=== PATIENT | female | born 1960 | race Caucasian/White ===

== ENCOUNTER 2023-08-25 10:12 | Inpatient (IN) | payer OTHER, SELFPAY ==
[2023-08-25] VITALS (49 sets, daily range): BP systolic 127–160; BP diastolic 72–143; PULSE 97–174; RESP 18–28; TEMP 36.2–37; O2SAT 89–100; BMI 29.7
--- NOTE | 2023-08-25 10:35 | CRLHL7_ITS ---
For Patients: As a result of the Century Cures Act, medical imaging exams and procedure reports are released immediately into your electronic medical record. You may view this report before your referring provider. If you have questions, please contact your health care provider. Indication: Shortness of breath Technique: Chest 2 views Comparison: None Findings/Impression: Cardiovascular and mediastinum: Heart size and vasculature are normal in caliber and appearance. Mediastinum is within normal limits. Lungs and pleural spaces: Small left and trace right pleural effusions with bibasilar airspace disease consistent with atelectasis or pneumonia. Bones and soft tissues: No significant findings. Dictated by Christiano Hogue MD @ 08/25/2023 11:42:46 AM (Electronically Signed)
--- NOTE | 2023-08-25 10:36 | ED_ITS ---
HPI - General Adult General Chief complaint: Shortness of Breath/Dyspnea Stated complaint: can't catch breath Time Seen by Provider: 08/25/23 10:28 History of Present Illness HPI narrative: This 63-year-old female comes in reporting shortness of breath. She states that she has become more short of breath over the past week. She reports cough with diarrhea and fever initially about a month ago and states that she got better with all of those symptoms until about a week ago when she began to cough again and had more shortness of breath. She does not have any smoking history. She does not have a prior history of pulmonary disease or shortness of breath. She arrives here with tachycardia and tachypnea. Her temperature is normal and she has oximetry at 96-97% on room air. She does not report any chest pain. She does not have any unilateral leg pain or swelling. Related Data Home Medications ?Medication ?Instructions ?Recorded ?Confirmed escitalopram oxalate 10 mg tablet 10 mg PO DAILY 08/25/23 08/25/23 omeprazole 40 mg capsule,delayed 40 mg PO DAILY 08/25/23 08/25/23 release Allergies Allergy/AdvReac Type Severity Reaction Status Date / Time No Known Drug Allergies Allergy Verified 08/25/23 10:23 Review of Systems Status of ROS: Reports: 10 or more systems reviewed and unremarkable except as noted in History and below Narrative: Constitutional: No fevers, no weight gain or loss. Eyes: No discharge. No vision changes. HENT: No congestion, no sore throat, no ear pain. Cardiovascular: No chest pain, no palpitations. Respiratory: Shortness of breath. She reports a cough. Gastrointestinal: No abdominal pain, no vomiting, no diarrhea. Genitourinary: No dysuria, no hematuria. Musculoskeletal: Normal range of motion. Skin: No rashes, no pruritis. Neurological: No dizziness, weakness, sensory change, speech change. Endo/Heme/Allergies: No bruising or bleeding. No polydipsia. Pysch: no suicidality, no anxiety, no insomnia. All other systems reviewed and are negative. PFSH PFSH Social History Smoking Status: Never smoker How often do you have a drink containing alcohol: monthly or less AUDIT-C Alcohol total score: 1 Non-prescribed substance use: denies use Exam Narrative: Exam Narrative: Constitutional: Well-developed, well-nourished, no acute distress. HEENT: Normocephalic, atraumatic. Neck: Normal range of motion. Nontender. Supple. Heart: Regular. No murmurs. Tachycardia. Intact distal pulses. Lungs: Clear to auscultation, but decreased air movement and increased respiratory rate. Abdomen: Normal bowel sounds. Nontender. No rebound tenderness. Genitalia: Deferred. Back: No midline tenderness. Normal range of motion. Extremities: Normal range of motion. No injury. Skin: Intact. No rash. Warm. No erythema or pallor. Neurologic: No altered sensation. No weakness. Alert and oriented. Psychiatric: No suicidality. No anxiety or depression. No insomnia. Nursing notes and vitals signs are reviewed. Const: Vital Signs, click to edit/add: Vital Signs - 24 hr 08/25/23 10:21 08/25/23 10:22 08/25/23 10:37 Temperature 97.5 F L Pulse Rate Pulse Rate [Right Pulse Oximeter] 148 H Respiratory Rate 28 H Blood Pressure Blood Pressure [Ri ght Upper Arm] 150/108 H Pulse Oximetry 93 96 95 Oxygen Delivery Me thod Room Air 08/25/23 10:39 08/25/23 10:45 08/25/23 10:46 Temperature Pulse Rate 153 H 144 H 140 H Pulse Rate [Right Pulse Oximeter] Respiratory Rate Blood Pressure 149/117 H 148/124 H Blood Pressure [Ri ght Upper Arm] Pulse Oximetry 91 95 95 Oxygen Delivery Me thod 08/25/23 11:04 08/25/23 11:05 08/25/23 11:15 Temperature Pulse Rate 146 H 151 H 132 H Pulse Rate [Right Pulse Oximeter] Respiratory Rate 26 H Blood Pressure 151/122 H Blood Pressure [Ri ght Upper Arm] Pulse Oximetry 94 94 92 Oxygen Delivery Me thod 08/25/23 11:30 08/25/23 11:32 08/25/23 11:45 Temperature Pulse Rate 124 H 145 H 148 H Pulse Rate [Right Pulse Oximeter] Respiratory Rate Blood Pressure 148/127 H Blood Pressure [Ri ght Upper Arm] Pulse Oximetry 100 95 95 Oxygen Delivery Me thod 08/25/23 12:00 08/25/23 12:02 08/25/23 12:03 Temperature Pulse Rate 131 H 150 H 136 H Pulse Rate [Right Pulse Oximeter] Respiratory Rate 18 Blood Pressure 160/143 H Blood Pressure [Ri ght Upper Arm] Pulse Oximetry 91 94 94 Oxygen Delivery Me thod 08/25/23 12:15 08/25/23 12:30 08/25/23 12:31 Temperature Pulse Rate 144 H 158 H 141 H Pulse Rate [Right Pulse Oximeter] Respiratory Rate 24 Blood Pressure 127/98 H Blood Pressure [Ri ght Upper Arm] Pulse Oximetry 93 93 94 Oxygen Delivery Me thod 08/25/23 12:45 08/25/23 13:00 08/25/23 13:01 Temperature Pulse Rate 174 H 148 H 151 H Pulse Rate [Right Pulse Oximeter] Respiratory Rate Blood Pressure 143/108 H Blood Pressure [Ri ght Upper Arm] Pulse Oximetry 92 91 Oxygen Delivery Me thod 08/25/23 13:15 08/25/23 13:30 08/25/23 13:31 Temperature Pulse Rate 138 H 148 H 142 H Pulse Rate [Right Pulse Oximeter] Respiratory Rate Blood Pressure Blood Pressure [Ri ght Upper Arm] Pulse Oximetry 92 94 94 Oxygen Delivery Me thod 08/25/23 13:48 08/25/23 14:00 08/25/23 14:01 Temperature Pulse Rate 138 H 147 H 145 H Pulse Rate [Right Pulse Oximeter] Respiratory Rate Blood Pressure Blood Pressure [Ri ght Upper Arm] Pulse Oximetry 93 93 94 Oxygen Delivery Me thod 08/25/23 14:15 08/25/23 14:29 08/25/23 14:31 Temperature Pulse Rate 98 123 H 121 H Pulse Rate [Right Pulse Oximeter] Respiratory Rate Blood Pressure 130/91 H 127/98 H Blood Pressure [Ri ght Upper Arm] Pulse Oximetry 91 92 92 Oxygen Delivery Me thod 08/25/23 14:32 08/25/23 14:45 Temperature Pulse Rate 106 H 114 H Pulse Rate [Right Pulse Oximeter] Respiratory Rate Blood Pressure Blood Pressure [Ri ght Upper Arm] Pulse Oximetry 92 90 Oxygen Delivery Me thod Course Vital Signs Vital signs: Initial Vital Signs Respiratory Effort Short of Breath, Tachypnea 08/25/23 10:21 Respiratory Depth Shallow 08/25/23 10:21 Respiratory Pattern Normal 08/25/23 10:21 Pulse Oximetry 93 08/25/23 10:21 Vital Signs Pulse Oximetry 93 08/25/23 10:21 Temperature 97.5 F L 08/25/23 10:22 Pulse Rate 114 H 08/25/23 14:45 Respiratory Rate 24 08/25/23 12:31 Blood Pressure 127/98 H 08/25/23 14:31 Pulse Oximetry 90 08/25/23 14:45 Oxygen Delivery Method Room Air 08/25/23 10:22 Medications Administered Medications: Discontinued Medications Generic Name Dose Route Start Last Admin Trade Name Freq PRN Reason Stop Dose Admin Albuterol/Ipratropium 1 neb 08/25/23 10:34 08/25/23 11:20 Iprat-Albut 0.5-2.5 Mg/3 Ml Neb IH 08/25/23 10:35 1 neb ONCE ONE Administration Diltiazem HCl 20 mg 08/25/23 13:48 08/25/23 14:06 Diltiazem 5 Mg/Ml Inj IVP 08/25/23 13:49 20 mg ONCE ONE Administration Methylprednisolone Sodium Succinate 125 mg 08/25/23 10:34 08/25/23 11:20 Methylprednisolone Sod Succ 62.5 Mg/Ml (125) IVP 08/25/23 10:35 125 mg ONCE ONE Administration Perflutren Lipid Microsphere 2 ml 08/25/23 15:13 08/25/23 14:55 Perflutren Lipid Microspheres 2 Ml Vial IV 08/25/23 15:14 2 ml ONCE ONE Administration Medical Decision Making MDM Narrative Medical decision making narrative: This patient comes in with tachycardia and shortness of breath. Any EKG is obtained and shows heart rate around 160 beats per minute. It does appear to be atrial fibrillation however the rate is fast enough where it may be a compensatory mechanism for her shortness of breath. She does report a cough and states that she had a fever about almost a month ago. Chest x-ray shows bilateral lower lobe edema. Lab results show an elevated D-dimer at 1.[address] scan of the chest with IV contrast is obtained. There is no evidence of pulmonary embolism or pneumonia. The patient's white count is in normal range. She does have moderate size bilateral pleural effusions which accounts for her shortness of breath. Her B type nitrate peptide is elevated at around 2600. There is no comparison value available. This is a new onset atrial fibrillation for her and probably has been occurring over the past week or more so she is not a candidate for cardioversion. The patient did receive 20 mg of diltiazem intravenously which brought some rate control but not into normal range yet. She also received an oral dose of Eliquis and an IV dose of Lasix 40 mg. There was an opening at for the primary products inspectors to be able to do an echocardiogram today. This shows evidence of atrial fibrillation with an ejection fraction of 50-55% and mild TR and MR with pleural effusion. I spoke to the hospitalist on-call, Dr. Hanna, who agreed to her admission. Lab Data Labs: Lab Results 08/25/23 08/25/23 08/25/23 Range/Units 10:35 10:45 13:48 WBC 8.78 (4.50-11.00) K/uL RBC 5.50 H (4.00-5.20) m/uL Hgb 14.5 (12.0-16.0) gm/dL Hct 45.9 (33.0-51.0) % MCV 84 (80-100) fL MCH 26 (26-34) pg MCHC 32 (32-36) gm/dL RDW Coeff of Burke 13.6 (11.5-15.5) % Plt Count 310 (140-440) K/uL Neut % (Auto) 85.6 H (42.0-72.0) % Lymph % (Auto) 9.2 L (20-44) % [place] % (Auto) 4.3 (0.0-11.0) % Eos % (Auto) 0.6 (0.0-7.0) % Baso % (Auto) 0.2 (0.0-3.0) % Neut # (Auto) 7.50 H (1.7-7.0) K/uL Lymph # (Auto) 0.80 L (0.90-2.90) K/uL [place] # (Auto) 0.40 (0.00-0.90) K/UL Eos # (Auto) 0.05 (0.00-0.50) K/uL Baso # (Auto) 0.02 (0.00-0.30) K/uL Abs Immat Gran (auto) 0.01 (0.00-0.30) K/uL Imm/Tot Granulo (auto) 0.1 % D-Dimer Quant (PE/DVT) 1.93 H (0.00-0.50) ug/ml Sodium 138 (135-149) mmol/L Potassium 4.4 (3.6-5.1) mmol/L Chloride 101 (96-114) mmol/L Carbon Dioxide 29 (20-32) mmol/L Anion Gap 8 (7-15) mEq/L BUN 16 (7-30) mg/dL Creatinine 0.8 (0.5-1.5) mg/dL Estimated Creat Clear 48.43 Estimated GFR 82 ml/min Glucose 144 H (60-115) mg/dL Calcium 9.4 (8.4-10.6) mg/dL Magnesium (1.5-2.6) mg/dL C-Reactive Protein 1.6 H (0.5-1.0) mg/dL NT-Pro-B Natriuret Pep 2640 pg/mL POC Troponin I 0.01 (0.01-0.04) ng/ml 08/25/23 Range/Units 15:23 WBC (4.50-11.00) K/uL RBC (4.00-5.20) m/uL Hgb (12.0-16.0) gm/dL Hct (33.0-51.0) % MCV (80-100) fL MCH (26-34) pg MCHC (32-36) gm/dL RDW Coeff of [place] (11.5-15.5) % Plt Count (140-440) K/uL Neut % (Auto) (42.0-72.0) % Lymph % (Auto) (20-44) % [place] % (Auto) (0.0-11.0) % Eos % (Auto) (0.0-7.0) % Baso % (Auto) (0.0-3.0) % Neut # (Auto) (1.7-7.0) K/uL Lymph # (Auto) (0.90-2.90) K/uL [place] # (Auto) (0.00-0.90) K/UL Eos # (Auto) (0.00-0.50) K/uL Baso # (Auto) (0.00-0.30) K/uL Abs Immat Gran (auto) (0.00-0.30) K/uL Imm/Tot Granulo (auto) % D-Dimer Quant (PE/DVT) (0.00-0.50) ug/ml Sodium (135-149) mmol/L Potassium (3.6-5.1) mmol/L Chloride (96-114) mmol/L Carbon Dioxide (20-32) mmol/L Anion Gap (7-15) mEq/L BUN (7-30) mg/dL Creatinine (0.5-1.5) mg/dL Estimated Creat Clear Estimated GFR ml/min Glucose (60-115) mg/dL Calcium (8.4-10.6) mg/dL Magnesium 2.3 (1.5-2.6) mg/dL C-Reactive Protein (0.5-1.0) mg/dL NT-Pro-B Natriuret Pep pg/mL POC Troponin I (0.01-0.04) ng/ml Imaging Data CT scan - chest: Radiologist's impression: 1. No evidence of pulmonary embolism. 2. Pulmonary edema and moderate bilateral pleural effusions. ECG Data Attestation: I personally reviewed and interpreted this ECG as follows: Interpretation: Tachycardia, rate 165 beats per minute. The computer report shows atrial fibrillation with rapid ventricular response. By my assessment this is less clear as she is short of breath and the heart rate is fast enough where it is difficult to distinguish evidence of P waves. There are no ST or T-wave abnormalities. Repeat EKG after diltiazem shows atrial fibrillation with a heart rate of 132 beats per minute. There are no specific ST or T-wave abnormalities. Discharge Plan Discharge Clinical Impression: Congestive heart failure, Atrial fibrillation with rapid ventricular response Patient Disposition: Admitted As Inpatient Condition: Unchanged Prescriptions: No Action omeprazole 40 mg capsule,delayed release(DR/EC) 40 mg PO DAILY escitalopram oxalate 10 mg tablet 10 mg PO DAILY Follow Up/Referrals: Kishore Barreto MD [Staff Physician] -
[2023-08-25 10:53] LABS: Basophils Absolute Auto 0.02 K/uL (0.00-0.30); Basophils Percent Auto 0.2 % (0.0-3.0); Eosinophils Absolute Auto 0.05 K/uL (0.00-0.50); Eosinophils Percent Auto 0.6 % (0.0-7.0); Hematocrit 45.9 % (33.0-51.0); Hemoglobin* 14.5 gm/dL (12.0-16.0); Immature Granulocytes Abs Auto 0.01 K/uL (0.00-0.30); Immature Granulocytes Pct Auto 0.1 %; Lymphocytes Percent Auto 9.2 % (20-44); Mean Corpuscular HGB Conc 32 gm/dL (32-36); Mean Corpuscular Hemoglobin 26 pg (26-34); Mean Corpuscular Volume 84 fL (80-100); Monocytes Percent Auto 4.3 % (0.0-11.0); Neutrophils Percent Auto 85.6 % (42.0-72.0); Platelet Count* 310 K/uL (140-440); RDW Coefficient of Variation % 13.6 % (11.5-15.5); White Blood Count* 8.78 K/uL (4.50-11.00)
[2023-08-25 10:57] LABS: Slide Review Reflex No
[2023-08-25 10:58] LABS: Troponin, Point-of-Care* 0.01 ng/ml (0.01-0.04)
[2023-08-25 11:08] LABS: Chloride* 101 mmol/L (96-114); Potassium* 4.4 mmol/L (3.6-5.1); Sodium* 138 mmol/L (135-149)
[2023-08-25 11:11] LABS: Anion Gap 8 mEq/L (7-15); Blood Urea Nitrogen* 16 mg/dL (7-30); Carbon Dioxide* 29 mmol/L (20-32); Creatinine* 0.8 mg/dL (0.5-1.5); Est. Creatinine Clearance* 48.43; Estimated Glomerular Filt Rate 82 ml/min
[2023-08-25 11:12] LABS: Calcium* 9.4 mg/dL (8.4-10.6); D Dimer Quantitative* 1.93 ug/ml (0.00-0.50); Glucose* 144 mg/dL (60-115)
[2023-08-25 11:14] LABS: C Reactive Protein* 1.6 mg/dL (0.5-1.0)
[2023-08-25] MEDS: METHYLPREDNISOLONE SOD SUCC 62.5 MG/ML (125) 125 MG IVP (11:20)
[2023-08-25] MEDS: IPRAT-ALBUT 0.5-2.5 MG/3 ML NEB 1 NEB IH (11:20)
--- NOTE | 2023-08-25 11:28 | CRLHL7_ITS ---
For Patients: As a result of the Century Cures Act, medical imaging exams and procedure reports are released immediately into your electronic medical record. You may view this report before your referring provider. If you have questions, please contact your health care provider. INDICATION: Shortness of breath, tachycardia. TECHNIQUE: CT chest PE was acquired with 95 cc Isovue 370 IV contrast. COMPARISON: Same day chest radiographs. FINDINGS: Heart and vasculature: Contrast opacification of the pulmonary arterial tree is adequate. No sign of pulmonary embolism. Mild left atrial enlargement. Thoracic aorta and pulmonary artery are normal in caliber. Lungs and pleura: Moderate bilateral pleural effusions. Bilateral lower lobe and bibasilar atelectasis. Mosaic attenuation, likely reflecting pulmonary edema. No pneumothorax. Lymph nodes/mediastinum: No mediastinal, hilar, or axillary adenopathy. Chest wall: No masses. Upper abdomen: No acute findings. Bones: Unremarkable for age. IMPRESSION: 1. No evidence of pulmonary embolism. 2. Pulmonary edema and moderate bilateral pleural effusions. Please note that all CT scans at this facility use dose modulation, iterative reconstruction, and/or weight-based dosing when appropriate to reduce radiation dose to as low as reasonably achievable. Dictated by Casper More MD @ 08/25/2023 1:26:58 PM (Electronically Signed)
[2023-08-25] MEDS: dilTIAZem 5 MG/ML inj 20 MG IVP (14:06)
[2023-08-25 14:19] LABS: NT Pro B Type NatriureticPept* 2640 pg/mL
[2023-08-25] MEDS: PERFLUTREN LIPID MICROSPHERES 2 ML VIAL IV (14:55)
[2023-08-25 15:40] LABS: Magnesium* 2.3 mg/dL (1.5-2.6)
[2023-08-25] MEDS: APIXABAN 5 MG TABLET 10 MG PO (16:47)
[2023-08-25] MEDS: FUROSEMIDE 10 MG/ML inj 40 MG IVP (16:47)
--- NOTE | 2023-08-25 18:05 | P.IMHP_ITS ---
Hospitalist- H&P: HPI History of Present Illness Date Seen: 08/25/23 Chief complaint: can't catch breath Narrative: Tia Portillo is a 63 year old woman presents with increasing dyspnea with exertion for the past week. About a month ago she had a cough, diarrhea, low-grade fever with a temperature of a 100? F. this seemingly improved after a few days but ever since then she has noticed a gradual increasing dyspnea with exertion. Denies paroxysmal nocturnal dyspnea or orthopnea. Denies dyspnea at rest. Over the course of the past week she has had progressive dyspnea with exertion. She can hardly walk 30 ft now without being dyspneic and is taking longer for her to recover as well. Typically sleeps on her side with 1 or 2 pillows and this is not any different. Has not had any lower extremity edema. Denies chest heaviness, pressure, tightness, or pain. Denies syncope or near-syncope. Has had intermittent nausea. Had an episode of vomiting in the emergency department today. Denies paroxysmal nocturnal dyspnea orthopnea. Denies palpitations. Has never had any symptoms like this in the past. Denies blood loss of any sort. No recent trauma or injury. Recently traveled to [place], [place], by car. No other travel. Indicates she takes her medications as prescribed. Review of Systems Status of ROS: Reports: 10 or more systems reviewed and unremarkable except as noted in History and below Narrative: Aside from what is specified above is negative. Tells me she was assessed by her primary care physician for annual physical exam about 5 weeks ago and had an excellent checkup. Primary care physician is Dr. Goncalves., [facility]. Has never used tobacco in the past. Really drinks alcohol on social basis only, possibly 1 or 2 glasses of wine at [employer] in 1-2 beers a month at the most. Denies use of street or recreational drugs. Does not watch her sodium intake. Designates her father, Johnathan Diaz, as her power of associate attorney for health should that be required, phone [phone]. Requests full cardiopulmonary resuscitation in the event of cardiopulmonary demise. States unequivocally that she does not want to be kept alive in a persistent vegetative state. [facility] Medical History (Updated 08/25/23 @ 18:23 by Alfred Hanna MD) Dyspepsia ?R10.13 - Epigastric pain (ICD-10) Hyperlipidemia ?E78.5 - Hyperlipidemia, unspecified (ICD-10) Vitamin D deficiency ?E55.9 - Vitamin D deficiency, unspecified (ICD-10) Primary hypothyroidism ?E03.9 - Hypothyroidism, unspecified (ICD-10) Sensorineural hearing loss (SNHL) of both ears ?H90.3 - Sensorineural hearing loss, bilateral (ICD-10) History of ileus ?Z87.19 - Personal history of other diseases of the digestive system (ICD-10) Depression with anxiety ?F41.8 - Other specified anxiety disorders (ICD-10) Tinnitus of both ears ?H93.13 - Tinnitus, bilateral (ICD-10) Chronic back pain ?M54.9 - Dorsalgia, unspecified (ICD-10) ?G89.29 - Other chronic pain (ICD-10) Degenerative disc disease Surgical History (Updated 08/25/23 @ 17:59 by Alfred Hanna MD) Status post lumbar spinal fusion ?Z98.1 - Arthrodesis status (ICD-10) Family History (Updated 08/25/23 @ 18:04 by Alfred Hanna MD) Mother Cancer Diabetes Heart disease Aunt Breast cancer Crohn's disease Uncle Colon cancer Maternal Grandmother Diabetes Paternal Grandmother Diabetes Father Heart disease High blood pressure Son Crohn's disease Social History (Updated 08/25/23 @ 18:01 by Alfred Hanna MD) Narrative: 08/25/2023: Lives in [facility] with her pet dog. 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 living situation?: I presently do not have a place to live Problems where you live: no known problems Problems where you live details: Currently homeless. Lives in brother's camper. Looking for an apartment. In the past 12 months, utilities in danger of being shut off: unable to answer In past 12 months, lack of transportation kept you from medical appts, meetings, work, or getting things needed for daily living: no In the past 12 mos, have been you worried that your food would run out before you had money to buy more?: never true In the past 12 mos, the food you bought just didn't last and you didn't have money to buy more?: never true Highest level of school completed/degree received: some college, no degree Smoking Status: Never smoker Do you use any of these nicotine containing products: None Second hand tobacco smoke exposure: No How often do you have a drink containing alcohol: monthly or less Alcohol type: beer How many standard drinks containing alcohol do you have on a typical day: 3 or 4 How often do you have six or more drinks on one occasion: Less than monthly AUDIT-C Alcohol total score: 3 Non-prescribed substance use: denies use Caffeine: Yes (daily tea drinker) How often does anyone, including family, friends and others, physically hurt you : never How often does anyone, including family, friends and others, insult or talk down to you: never How often does anyone, including family, friends and others, threaten you with harm: never How often does anyone, including family, friends and others, scream or curse at you: never service: No Meds Home Medications and Allergies Home Medications ?Medication ?Instructions ?Recorded ?Confirmed ?Type escitalopram oxalate 10 mg tablet 10 mg PO DAILY 08/25/23 08/25/23 History levothyroxine 88 mcg tablet 88 mcg PO DAILY 08/25/23 08/25/23 History omeprazole 40 mg capsule,delayed 40 mg PO DAILY 08/25/23 08/25/23 History release tinnitus supplement 08/25/23 History Allergies Allergy/AdvReac Type Severity Reaction Status Date / Time cucumber Allergy Mild Verified 08/25/23 17:49 latex Allergy Mild Verified 08/25/23 17:49 Lettuce Allergy Mild Uncoded 08/25/23 17:49 Peppers Allergy Mild Uncoded 08/25/23 17:49 Exam Narrative: Exam Narrative: Examined patient emergency department. She is sitting with head of bed elevated 45?. Appears comfortable. Vision and hearing are adequate. Alert and oriented to self, place, time, situation. Friendly, articulate, cooperative. Tympanic membranes and external auditory canals are clear bilaterally. Midline nasal septum. Dry nasal mucosa. No conjunctival injection or icterus. Pupils equally round and reactive to light and accommodation. Conjugate gaze. M ultiple missing teeth. Needs some dental work done. Other teeth in fair repair. Midline trachea. Supple neck. With patient in sitting upright position she has jugular venous distention long term up her neck and hepatojugular reflux up to the angle of the jaw. No carotid bruits. No head and neck lymphadenopathy. Lungs with decreased breath sounds in the bases otherwise clear to auscultation without wheezing, rhonchi, or rales. Chest wall excursions are full with respiratory efforts. No CVA tenderness to thumping. Heart tones are chaotic and tachycardic. Difficult to discern murmurs, gallops, or rubs. PMI not laterally displaced. Abdomen with active bowel sounds, soft, nontender. No organomegaly or masses. No rebound or guarding. Extremities without edema. Palpable pulses upper and lower extremities. Independent in transfer, station, and gait. No focal motor neurologic deficits. Cranial nerves 3-12 grossly intact. No tremor, asterixis, or ataxia. Skin is warm, dry, intact. Const: Vital Signs, click to edit/add: Vital Signs - 24 hr 08/25/23 10:21 08/25/23 10:22 08/25/23 10:37 Temperature 97.5 F L Pulse Rate Pulse Rate [Pulse Oximeter] Pulse Rate [Right Pulse Oximeter] 148 H Respiratory Rate 28 H Blood Pressure Blood Pressure [Le ft Arm] Blood Pressure [Ri ght Upper Arm] 150/108 H Pulse Oximetry 93 96 95 Oxygen Delivery Me thod Room Air 08/25/23 10:39 08/25/23 10:45 08/25/23 10:46 Temperature Pulse Rate 153 H 144 H 140 H Pulse Rate [Pulse Oximeter] Pulse Rate [Right Pulse Oximeter] Respiratory Rate Blood Pressure 149/117 H 148/124 H Blood Pressure [Le ft Arm] Blood Pressure [Ri ght Upper Arm] Pulse Oximetry 91 95 95 Oxygen Delivery Me thod 08/25/23 11:04 08/25/23 11:05 08/25/23 11:15 Temperature Pulse Rate 146 H 151 H 132 H Pulse Rate [Pulse Oximeter] Pulse Rate [Right Pulse Oximeter] Respiratory Rate 26 H Blood Pressure 151/122 H Blood Pressure [Le ft Arm] Blood Pressure [Ri ght Upper Arm] Pulse Oximetry 94 94 92 Oxygen Delivery Me thod 08/25/23 11:30 08/25/23 11:32 08/25/23 11:45 Temperature Pulse Rate 124 H 145 H 148 H Pulse Rate [Pulse Oximeter] Pulse Rate [Right Pulse Oximeter] Respiratory Rate Blood Pressure 148/127 H Blood Pressure [Le ft Arm] Blood Pressure [Ri ght Upper Arm] Pulse Oximetry 100 95 95 Oxygen Delivery Me thod 08/25/23 12:00 08/25/23 12:02 08/25/23 12:03 Temperature Pulse Rate 131 H 150 H 136 H Pulse Rate [Pulse Oximeter] Pulse Rate [Right Pulse Oximeter] Respiratory Rate 18 Blood Pressure 160/143 H Blood Pressure [Le ft Arm] Blood Pressure [Ri ght Upper Arm] Pulse Oximetry 91 94 94 Oxygen Delivery Me thod 08/25/23 12:15 08/25/23 12:30 08/25/23 12:31 Temperature Pulse Rate 144 H 158 H 141 H Pulse Rate [Pulse Oximeter] Pulse Rate [Right Pulse Oximeter] Respiratory Rate 24 Blood Pressure 127/98 H Blood Pressure [Le ft Arm] Blood Pressure [Ri ght Upper Arm] Pulse Oximetry 93 93 94 Oxygen Delivery Me thod 08/25/23 12:45 08/25/23 13:00 08/25/23 13:01 Temperature Pulse Rate 174 H 148 H 151 H Pulse Rate [Pulse Oximeter] Pulse Rate [Right Pulse Oximeter] Respiratory Rate Blood Pressure 143/108 H Blood Pressure [Le ft Arm] Blood Pressure [Ri ght Upper Arm] Pulse Oximetry 92 91 Oxygen Delivery Me thod 08/25/23 13:15 08/25/23 13:30 08/25/23 13:31 Temperature Pulse Rate 138 H 148 H 142 H Pulse Rate [Pulse Oximeter] Pulse Rate [Right Pulse Oximeter] Respiratory Rate Blood Pressure Blood Pressure [Le ft Arm] Blood Pressure [Ri ght Upper Arm] Pulse Oximetry 92 94 94 Oxygen Delivery Nv thod 08/25/23 13:48 08/25/23 14:00 08/25/23 14:01 Temperature Pulse Rate 138 H 147 H 145 H Pulse Rate [Pulse Oximeter] Pulse Rate [Right Pulse Oximeter] Respiratory Rate Blood Pressure Blood Pressure [Le ft Arm] Blood Pressure [Ri ght Upper Arm] Pulse Oximetry 93 93 94 Oxygen Delivery Me thod 08/25/23 14:15 08/25/23 14:29 08/25/23 14:31 Temperature Pulse Rate 98 123 H 121 H Pulse Rate [Pulse Oximeter] Pulse Rate [Right Pulse Oximeter] Respiratory Rate Blood Pressure 130/91 H 127/98 H Blood Pressure [Le ft Arm] Blood Pressure [Ri ght Upper Arm] Pulse Oximetry 91 92 92 Oxygen Delivery Me thod 08/25/23 14:32 08/25/23 14:45 08/25/23 15:00 Temperature Pulse Rate 106 H 114 H 113 H Pulse Rate [Pulse Oximeter] Pulse Rate [Right Pulse Oximeter] Respiratory Rate Blood Pressure Blood Pressure [Le ft Arm] Blood Pressure [Ri ght Upper Arm] Pulse Oximetry 92 90 91 Oxygen Delivery Me thod 08/25/23 15:16 08/25/23 15:18 08/25/23 15:30 Temperature Pulse Rate 135 H 133 H 119 H Pulse Rate [Pulse Oximeter] Pulse Rate [Right Pulse Oximeter] Respiratory Rate Blood Pressure Blood Pressure [Le ft Arm] Blood Pressure [Ri ght Upper Arm] Pulse Oximetry 89 93 93 Oxygen Delivery Me thod 08/25/23 15:33 08/25/23 15:45 08/25/23 16:00 Temperature Pulse Rate 134 H 125 H 131 H Pulse Rate [Pulse Oximeter] Pulse Rate [Right Pulse Oximeter] Respiratory Rate 26 H Blood Pressure 129/106 H Blood Pressure [Le ft Arm] Blood Pressure [Ri ght Upper Arm] Pulse Oximetry 93 91 92 Oxygen Delivery Me thod 08/25/23 16:02 08/25/23 16:15 08/25/23 16:30 Temperature Pulse Rate 131 H 143 H 145 H Pulse Rate [Pulse Oximeter] Pulse Rate [Right Pulse Oximeter] Respiratory Rate Blood Pressure 151/117 H Blood Pressure [Le ft Arm] Blood Pressure [Ri ght Upper Arm] Pulse Oximetry 91 92 91 Oxygen Delivery Me thod 08/25/23 16:31 08/25/23 16:45 08/25/23 17:35 Temperature 97.6 F Pulse Rate 138 H 135 H Pulse Rate [Pulse Oximeter] 146 H Pulse Rate [Right Pulse Oximeter] Respiratory Rate 26 H Blood Pressure 137/120 H Blood Pressure [Le ft Arm] 127/105 H Blood Pressure [Ri ght Upper Arm] Pulse Oximetry 91 91 90 Oxygen Delivery Me od Room Air Hospitalist - H&P: Result Labs Labs: Short CBC 08/25/23 Range/Units 10:45 WBC 8.78 (4.50-11.00) K/uL Hgb 14.5 (12.0-16.0) gm/dL Hct 45.9 (33.0-51.0) % Plt Count 310 (140-440) K/uL [facility] 08/25/23 10:45 Sodium 138 Potassium 4.4 Chloride 101 Carbon Dioxide 29 BUN 16 Creatinine 0.8 Glucose 144 H Calcium 9.4 ECG Attestation: I personally reviewed and interpreted this ECG as follows: ECG interpretation date: 08/25/23 Interpretation: Atrial fibrillation with rapid ventricular response. No obvious infarct or ischemic pattern. Imaging Chest x-ray: Attestation: I have reviewed the pertinent imaging results. Radiologist's impression: Mild to moderate left pleural effusion. Chest x-ray otherwise unremarkable. CT scan - chest: Attestation: I have reviewed the pertinent imaging results. Radiologist's impression: IMPRESSION: 1. No evidence of pulmonary embolism. 2. Pulmonary edema and moderate bilateral pleural effusions. Assessment and Plan Assessment and plan (1) Acute diastolic heart failure with preserved ejection fraction: Problem comment: -furosemide 40 mg IV in the emergency department on 08/25/2023 and then 40 mg IV tomorrow morning -rate control of AFib RVR -echocardiogram obtained while patient was in the emergency department on 08/25/23 demonstrated the followin. Normal LV chamber size and wall thickness with normal global systolic function and estimated EF of 55-60%. 2. Mildly enlarged left atrium. 3. Right ventricular cavity size is normal with normal systolic RV function. 4. Mitral valve sclerosis with mild to moderate mitral regurgitation. 5. No pericardial effusion. Status: Acute (2) Atrial fibrillation with rapid ventricular response: Problem comment: -echo obtained in the emergency department on 08/25/2023 demonstrated EF of 55- 60%. -diltiazem 20 mg IV in the emergency department slowed heart rate from 160 beats per minute down to 120 beats per minute. -on arrival to floor we will give patient diltiazem 10 mg IV, started metoprolol 2.5 mg IV q.6, and make available diltiazem 30 mg immediate release q.6 hours p.r.n. for heart rate greater than 100 beats per minute for more than 10 minutes appear -initiate anticoagulation with apixaban. In ED she was administered 10 mg orally. Starting tomorrow morning we will start her on apixaban 5 mg twice daily. -patient will need to be anticoagulated for at least a month before consideration of possible intentional cardioversion Status: Acute (3) Diastolic heart failure, NYHA class 3: Problem comment: -control AFib RVR rate and initiate diuresis with furosemide 40 mg IV Status: Acute (4) Pleural effusion due to congestive heart failure: Problem comment: -for now will treat with diuresis. -consider needle thoracentesis if warranted hereafter. Status: Acute Plan 1. Reviewed impression with patient. 2. Answered her questions to her satisfaction. 3. Discussed recommended treatment plan. 4. Patient agreeable to above stated plans and recommendations. 5. Continue with other supportive efforts. Total Time Spent Total Time Spent: 65 minute
[2023-08-25] MEDS: METOPROLOL TARTRATE 1 MG/ML inj 2.5 MG IVP ×2 (18:10→23:43)
[2023-08-25] MEDS: dilTIAZem 30 MG TABLET PO ×2 (18:10→23:14)
[2023-08-25] MEDS: dilTIAZem 5 MG/ML inj 10 MG IVP (18:27)
--- NOTE | 2023-08-25 18:56 | PC.NURSE ---
Admission: Patient arrived to unit at 1715 via wheelchair. Patient alert and oriented. Increased blood pressure and respirations noted. Patient is SOB and tachypneic with exertion. Afebrile. Able to ambulate independently. Tolerated a regular diet well.
[2023-08-25] MEDS: ACETAMINOPHEN 325 MG TABLET 650 MG PO (19:50)
[2023-08-25] MEDS: SODIUM CHLORIDE 0.9 % (FLUSH) 10 ML SYRINGE 5 ML IVF (21:02)
[2023-08-25] MEDS: ESCITALOPRAM 10 MG TABLET PO (22:40)
[2023-08-25] MEDS: METOPROLOL TARTRATE 25 MG TABLET PO (23:12)
[2023-08-26] VITALS (10 sets, daily range): BP systolic 102–129; BP diastolic 62–85; PULSE 69–99; RESP 18–20; TEMP 36.4–36.8; O2SAT 88–95
[2023-08-26] MEDS: MELATONIN 3 MG TABLET PO ×2 (00:17→21:25)
[2023-08-26] MEDS: LEVOTHYROXINE 88 MCG TABLET PO (06:05)
[2023-08-26] MEDS: dilTIAZem 30 MG TABLET PO ×3 (06:05→16:17)
[2023-08-26] MEDS: OMEPRAZOLE 20 MG CAPSULE DR 40 MG PO (06:06)
[2023-08-26 06:39] LABS: Hemoglobin* 12.7 gm/dL (12.0-16.0); Mean Corpuscular HGB Conc 32 gm/dL (32-36); Mean Corpuscular Hemoglobin 26 pg (26-34); Mean Corpuscular Volume 83 fL (80-100); Platelet Count* 226 K/uL (140-440); Red Blood Count 4.81 m/uL (4.00-5.20)
[2023-08-26 06:44] LABS: Slide Review Reflex No
--- NOTE | 2023-08-26 06:53 | PC.NURSE ---
End of shift note [id number]: Pt alert & oriented x 4 and able to make needs known. IV to R AC patent and SL. Pt has been afebrile throughout the shift. She continues on telemetry with A fib with RVR noted last evening. PRN Metoprolol IVP given per order for HR of 116. Pt has since been in A fib with normal ventricular rate. EKG completed this morning per order. PRN Melatonin last evening administered per pt request. She transfers/ambulates independently in room and has been agreeable to wearing bilateral K[place]TH[place]KEY[place] stockings per order though did refuse SCDs. Pt continent of bladder. PRN Tylenol given for report of 4/10 lower back pain last evening along with ice, rest and repositioning.
[2023-08-26 06:57] LABS: Magnesium* 2.2 mg/dL (1.5-2.6)
[2023-08-26 07:17] LABS: Troponin I* < 0.01 ng/mL (0.01-0.04)
[2023-08-26] MEDS: FUROSEMIDE 10 MG/ML inj 40 MG IVP (09:09)
[2023-08-26] MEDS: APIXABAN 5 MG TABLET PO ×2 (09:10→20:38)
[2023-08-26] MEDS: METOPROLOL TARTRATE 25 MG TABLET PO ×2 (09:10→20:38)
[2023-08-26] MEDS: SODIUM CHLORIDE 0.9 % (FLUSH) 10 ML SYRINGE 5 ML IVF ×2 (09:12→20:39)
--- NOTE | 2023-08-26 10:02 | PM.IMPN1 ---
Progress Note: A&P Assessment and plan (1) Acute diastolic heart failure with preserved ejection fraction: Problem details: - furosemide 40 mg IV in the emergency department on 08/25/2023 and then 40 mg IV 08/25 morning - rate control of AFib RVR - TTE obtained while patient was in the emergency department on 08/25/23 demonstrated the followin. Normal LV chamber size and wall thickness with normal global systolic function and estimated EF of 55-60%. 2. Mildly enlarged left atrium. 3. Right ventricular cavity size is normal with normal systolic RV function. 4. Mitral valve sclerosis with mild to moderate mitral regurgitation. 5. No pericardial effusion. Status: Acute (2) Atrial fibrillation with rapid ventricular response: Problem details: - Diltiazem 20 mg IV in the emergency department slowed HR from 160s-120s - upon admission, initiated oral Metoprolol BID, prn IV Metoprolol, scheduled IR Diltiazem Q6H - Will transition from IR to ER Diltiazem 08/25 pm, continue to follow on telemetry - if stable tomorrow, likely d/c home - on Apixaban for anticoagulation - close outpatient f/u Status: Acute (3) Diastolic heart failure, NYHA class 3: Problem details: -control AFib RVR rate and initiate diuresis with furosemide 40 mg IV Status: Acute (4) Pleural effusion due to congestive heart failure: Problem details: - improving with diuresis - received IV Lasix in the ER and upon admission to the hospital - anticipate this will improve with heart rate control, will hold further diuretics and monitor clinically Status: Acute (5) Hypothyroidism: Problem details: - on 88mcg of Levothyroxine - TSH 1 on 08/25/23; patient considering lowering dose to 88mcg 5 days/week to increase TSH given new onset a fib Status: Acute Plan - per above - apixaban for anticoagulation - likely home tomorrow with close PCP follow-up Subjective Date Seen: 08/26/23 Interval history: Tia was admitted (with new onset AFib with RVR, also noted to have bilateral pleural effusions. She still has atrial fibrillation, currently rate controlled on current regimen. She received IV Lasix in the emergency room last night and another dose this morning. She is currently stable on room air, feels significantly better with rate control. She remains in atrial fibrillation, on metoprolol BID and q.6 hours diltiazem. No other concerns for hospitalist team this morning. Exam Narrative: Exam Narrative: GEN: Alert and answering questions appropriately, sitting comfortably in bed and nontender toxic. Speaking in full sentences without tachypnea HEENT: EOMIs bilaterally, no scleral icterus CV: Irregularly irregular rhythm with rate in the 80s, no concerning murmurs R: Decreased breath some bilateral bases, no concerning wheezing Ext: wwp, no concerning edema Skin: No concerning skin lesions or rashes on exposed skin Neuro: Nonfocal Psych: Appropriate Const: Vital Signs, click to edit/add: Vital Signs - 24 hr 08/25/23 10:21 08/25/23 10:22 08/25/23 10:37 Temperature 97.5 F L Pulse Rate Pulse Rate [Pulse Oximeter] Pulse Rate [Right Pulse Oximeter] 148 H Respiratory Rate 28 H Blood Pressure Blood Pressure [Le ft Arm] Blood Pressure [Ri ght Upper Arm] 150/108 H Pulse Oximetry 93 96 [facility] 08/25/23 10:39 08/25/23 10:45 08/25/23 10:46 Temperature Pulse Rate 153 H 144 H 140 H Pulse Rate [Pulse Oximeter] Pulse Rate [Right Pulse Oximeter] Respiratory Rate Blood Pressure 149/117 H 148/124 H Blood Pressure [Le ft Arm] Blood Pressure [Ri ght Upper Arm] Pulse Oximetry 91 95 95 [facility] 08/25/23 11:04 08/25/23 11:05 08/25/23 11:15 Temperature Pulse Rate 146 H 151 H 132 H Pulse Rate [Pulse Oximeter] Pulse Rate [Right Pulse Oximeter] Respiratory Rate 26 H Blood Pressure 151/122 H Blood Pressure [Le ft Arm] Blood Pressure [Ri ght Upper Arm] Pulse Oximetry 94 94 92 [facility] 08/25/23 11:30 08/25/23 11:32 08/25/23 11:45 Temperature Pulse Rate 124 H 145 H 148 H Pulse Rate [Pulse Oximeter] Pulse Rate [Right Pulse Oximeter] Respiratory Rate Blood Pressure 148/127 H Blood Pressure [Le ft Arm] Blood Pressure [Ri ght Upper Arm] Pulse Oximetry 100 95 95 [facility] 08/25/23 12:00 08/25/23 12:02 08/25/23 12:03 Temperature Pulse Rate 131 H 150 H 136 H Pulse Rate [Pulse Oximeter] Pulse Rate [Right Pulse Oximeter] Respiratory Rate 18 Blood Pressure 160/143 H Blood Pressure [Le ft Arm] Blood Pressure [Ri ght Upper Arm] Pulse Oximetry 91 94 94 Oxygen Delivery Me thod 08/25/23 12:15 08/25/23 12:30 08/25/23 12:31 Temperature Pulse Rate 144 H 158 H 141 H Pulse Rate [Pulse Oximeter] Pulse Rate [Right Pulse Oximeter] Respiratory Rate 24 Blood Pressure 127/98 H Blood Pressure [Le ft Arm] Blood Pressure [Ri ght Upper Arm] Pulse Oximetry 93 93 94 Oxygen Delivery Me thod 08/25/23 12:45 08/25/23 13:00 08/25/23 13:01 Temperature Pulse Rate 174 H 148 H 151 H Pulse Rate [Pulse Oximeter] Pulse Rate [Right Pulse Oximeter] Respiratory Rate Blood Pressure 143/108 H Blood Pressure [Le ft Arm] Blood Pressure [Ri ght Upper Arm] Pulse Oximetry 92 91 Oxygen Delivery Me thod 08/25/23 13:15 08/25/23 13:30 08/25/23 13:31 Temperature Pulse Rate 138 H 148 H 142 H Pulse Rate [Pulse Oximeter] Pulse Rate [Right Pulse Oximeter] Respiratory Rate Blood Pressure Blood Pressure [Le ft Arm] Blood Pressure [Ri ght Upper Arm] Pulse Oximetry 92 94 94 Oxygen Delivery Or thod 08/25/23 13:48 08/25/23 14:00 08/25/23 14:01 Temperature Pulse Rate 138 H 147 H 145 H Pulse Rate [Pulse Oximeter] Pulse Rate [Right Pulse Oximeter] Respiratory Rate Blood Pressure Blood Pressure [Le ft Arm] Blood Pressure [Ri ght Upper Arm] Pulse Oximetry 93 93 94 Oxygen Delivery Me thod 08/25/23 14:15 08/25/23 14:29 08/25/23 14:31 Temperature Pulse Rate 98 123 H 121 H Pulse Rate [Pulse Oximeter] Pulse Rate [Right Pulse Oximeter] Respiratory Rate Blood Pressure 130/91 H 127/98 H Blood Pressure [Le ft Arm] Blood Pressure [Ri ght Upper Arm] Pulse Oximetry 91 92 92 Oxygen Delivery Me thod 08/25/23 14:32 08/25/23 14:45 08/25/23 15:00 Temperature Pulse Rate 106 H 114 H 113 H Pulse Rate [Pulse Oximeter] Pulse Rate [Right Pulse Oximeter] Respiratory Rate Blood Pressure Blood Pressure [Le ft Arm] Blood Pressure [Ri ght Upper Arm] Pulse Oximetry 92 90 91 Oxygen Delivery Me thod 08/25/23 15:16 08/25/23 15:18 08/25/23 15:30 Temperature Pulse Rate 135 H 133 H 119 H Pulse Rate [Pulse Oximeter] Pulse Rate [Right Pulse Oximeter] Respiratory Rate Blood Pressure Blood Pressure [Le ft Arm] Blood Pressure [Ri ght Upper Arm] Pulse Oximetry 89 93 93 Oxygen Delivery Me thod 08/25/23 15:33 08/25/23 15:45 08/25/23 16:00 Temperature Pulse Rate 134 H 125 H 131 H Pulse Rate [Pulse Oximeter] Pulse Rate [Right Pulse Oximeter] Respiratory Rate 26 H Blood Pressure 129/106 H Blood Pressure [Le ft Arm] Blood Pressure [Ri ght Upper Arm] Pulse Oximetry 93 91 92 Oxygen Delivery Me thod 08/25/23 16:02 08/25/23 16:15 08/25/23 16:30 Temperature Pulse Rate 131 H 143 H 145 H Pulse Rate [Pulse Oximeter] Pulse Rate [Right Pulse Oximeter] Respiratory Rate Blood Pressure 151/117 H Blood Pressure [Le ft Arm] Blood Pressure [Ri ght Upper Arm] Pulse Oximetry 91 92 91 Oxygen Delivery Me thod 08/25/23 16:31 08/25/23 16:45 08/25/23 17:35 Temperature 97.6 F Pulse Rate 138 H 135 H Pulse Rate [Pulse Oximeter] 146 H Pulse Rate [Right Pulse Oximeter] Respiratory Rate 26 H Blood Pressure 137/120 H Blood Pressure [Le ft Arm] 127/105 H Blood Pressure [Ri ght Upper Arm] Pulse Oximetry 91 91 90 Oxygen Delivery Me thod Room Air 08/25/23 17:35 08/25/23 18:33 08/25/23 19:38 Temperature 98.6 F Pulse Rate 97 Pulse Rate [Pulse Oximeter] 121 H Pulse Rate [Right Pulse Oximeter] Respiratory Rate 26 H 24 Blood Pressure Blood Pressure [Le ft Arm] 135/72 Blood Pressure [Ri ght Upper Arm] Pulse Oximetry 90 92 Oxygen Delivery Me thod Room Air Room Air 08/25/23 23:00 08/25/23 23:00 08/25/23 23:00 Temperature 97.2 F L Pulse Rate 113 H Pulse Rate [Pulse Oximeter] 110 H Pulse Rate [Right Pulse Oximeter] Respiratory Rate 20 20 Blood Pressure Blood Pressure [Le ft Arm] 154/83 H Blood Pressure [Ri ght Upper Arm] Pulse Oximetry 91 91 Oxygen Delivery Or thod Room Air Room Air 08/25/23 23:00 08/25/23 23:39 08/26/23 02:57 Temperature 97.8 F Pulse Rate Pulse Rate [Pulse Oximeter] 116 H 116 H 84 Pulse Rate [Right Pulse Oximeter] Respiratory Rate 20 18 Blood Pressure Blood Pressure [Le ft Arm] 129/76 Blood Pressure [Ri ght Upper Arm] Pulse Oximetry 88 Oxygen Delivery Me thod Room Air 08/26/23 07:42 08/26/23 09:32 08/26/23 09:33 Temperature 98.2 F Pulse Rate 77 Pulse Rate [Pulse Oximeter] 99 Pulse Rate [Right Pulse Oximeter] Respiratory Rate 20 20 Blood Pressure Blood Pressure [Le ft Arm] 102/80 Blood Pressure [Ri ght Upper Arm] Pulse Oximetry 92 92 Oxygen Delivery Or thod Room Air Room Air Labs Labs: Laboratory Results - last 24 hr 08/25/23 08/25/23 08/25/23 10:35 10:45 13:48 WBC 8.78 RBC 5.50 H Hgb 14.5 Hct 45.9 MCV 84 MCH 26 MCHC 32 RDW Coeff of Burke 13.6 Plt Count 310 Neut % (Auto) 85.6 H Lymph % (Auto) 9.2 L [place] % (Auto) 4.3 Eos % (Auto) 0.6 Baso % (Auto) 0.2 Neut # (Auto) 7.50 H Lymph # (Auto) 0.80 L [place] # (Auto) 0.40 Eos # (Auto) 0.05 Baso # (Auto) 0.02 Abs Immat Gran (auto) 0.01 Imm/Tot Granulo (auto) 0.1 D-Dimer Quant (PE/DVT) 1.93 H Sodium 138 Potassium 4.4 Chloride 101 Carbon Dioxide 29 Anion Gap 8 BUN 16 Creatinine 0.8 Estimated Creat Clear 48.43 Estimated GFR 82 Glucose 144 H Calcium 9.4 Magnesium Troponin I C-Reactive Protein 1.6 H NT-Pro-B Natriuret Pep 2640 TSH POC Troponin I 0.01 06/18/24 06/19/24 15:23 06:03 WBC 8.70 RBC 4.81 Hgb 12.7 Hct 40.0 MCV 83 MCH 26 MCHC 32 RDW Coeff of Burke Plt Count 226 Neut % (Auto) Lymph % (Auto) [place] % (Auto) Eos % (Auto) Baso % (Auto) Neut # (Auto) Lymph # (Auto) [place] # (Auto) Eos # (Auto) Baso # (Auto) Abs Immat Gran (auto) Imm/Tot Granulo (auto) D-Dimer Quant (PE/DVT) Sodium Potassium Chloride Carbon Dioxide Anion Gap BUN Creatinine Estimated Creat Clear Estimated GFR Glucose Calcium Magnesium 2.3 2.2 Troponin I < 0.01 L C-Reactive Protein NT-Pro-B Natriuret Pep TSH 1.460 POC Troponin I
--- NOTE | 2023-08-26 11:36 | NUTR.NU ---
SHY with diet education related to new diagnosis of heart failure. Patient admitted with new diagnosis of heart failure. Current weight 172 lb 12.8 oz; height 5ft 4in; BMI 29.7 kg/m2. She reports her weight has been stable recently. Current diet is 2 gram sodium. Meal intake this morning was at 80%. RDN visited patient whom reports cooking meals at home with no added salt. She tries to limit sodium intake. She eats cold cereal sometimes. She struggles finding low sodium canned foods. Patient declined diet education related to heart healthy diet at this time, however she did accept educational materials to read on her own time. Handouts provided from [facility] on heart failure nutrition therapy, sodium content of foods, heart healthy label reading tips, sodium-free flavoring tips and heart healthy cooking and shopping tips. Reviewed a low sodium food per servings contains 140 mg of sodium or less. Patient verbalized understanding. RDN's contact information was provided and patient was encouraged to call with questions.
[2023-08-26] MEDS: ACETAMINOPHEN 325 MG TABLET 650 MG PO ×2 (12:50→19:57)
--- NOTE | 2023-08-26 14:46 | PC.SOCIAL ---
Discharge planning: photofinishing laboratory worker met with pt today in her room. photofinishing laboratory worker provided pt with local resources for housing and housing availability. Pt states that she just moved back to the area and is living in an RV on her brother's property in [place], [place]. Pt states that she used to live in [place] years ago and does want to relocate to [place] permanently. Pt states that she is low income and receives only social security monthly. photofinishing laboratory worker discussed low-income/subsidized housing options where the pt could apply in [place]; i.e., [facility], [facility] and [facility] subsidized apartments. photofinishing laboratory worker gave the pt applications for all three apartment complexes. Pt will work on filling out the applications this afternoon in the hospital. photofinishing laboratory worker also provided the pt with information on [facility] [place], where the pt also plans to go after her hospital stay to get assistance with her housing search. photofinishing laboratory worker explained that [facility] has financial assistance programs and could possibly help her with part of her first month's rent and deposit when she does find a place. photofinishing laboratory worker shared that [facility] also has the food shelf and many other resources that she may be eligible for. Pt was thankful for the assistance. Social work to follow-up as needed.
[2023-08-26] MEDS: dilTIAZem 120 MG CAP.ER.24H PO (19:33)
--- NOTE | 2023-08-26 19:58 | PC.NURSE ---
End of shift [id number] - Pt alert, oriented, cooperative. Up independent in room and noted to walk in halls often during shift. Pt tolerating RA, regular diet/fluids. Reported pain in low back as 4-5/10. Medication given per MAY with pt reporting improved comfort. Pt reported feeling better than previous day and denied episodes of SOB with exertion, lightheadedness, or dizziness. Pt appears to be resting comfortably at end of shift.
[2023-08-26] MEDS: ESCITALOPRAM 10 MG TABLET PO (20:38)
--- NOTE | 2023-08-26 23:22 | PC.NURSE ---
End of shift note [id number]: Pt alert & oriented x 4 and able to make needs known. VSS and pt has been afebrile. She transfers/ambulates independently in room. Pt remains continent of bladder. Pt reported having productive cough with yellow/green sputum this morning when asked though comic book writer has noted no coughing or sputum this evening. NOC nurse updated. PRN Tylenol given at HS for c/o chronic lower back pain with ice provided, rest encouraged and repositioning performed.
[2023-08-27 04:35] VITALS: BP 146/91; PULSE 79; RESP 14; TEMP 36.4; O2SAT 95
[2023-08-27] MEDS: OMEPRAZOLE 20 MG CAPSULE DR 40 MG PO (06:24)
[2023-08-27] MEDS: LEVOTHYROXINE 88 MCG TABLET PO (06:25)
--- NOTE | 2023-08-27 06:28 | PC.NURSE ---
Pt alert and oriented x3. Afebrile. Tele showing atrial fibrillation with normal ventricular rate. Pt denies SOB, chest pain, and N/V. Pt is up ad tata in room, voiding, passing gas and tolerating regular diet. VSS. Night uneventful. ?
[2023-08-27 06:52] LABS: Basophils Absolute Auto 0.01 K/uL (0.00-0.30); Basophils Percent Auto 0.1 % (0.0-3.0); Eosinophils Absolute Auto 0.03 K/uL (0.00-0.50); Eosinophils Percent Auto 0.3 % (0.0-7.0); Hematocrit 38.1 % (33.0-51.0); Hemoglobin* 12.1 gm/dL (12.0-16.0); Immature Granulocytes Abs Auto 0.02 K/uL (0.00-0.30); Immature Granulocytes Pct Auto 0.2 %; Lymphocytes Percent Auto 14.7 % (20-44); Mean Corpuscular HGB Conc 32 gm/dL (32-36); Mean Corpuscular Hemoglobin 27 pg (26-34); Mean Corpuscular Volume 84 fL (80-100); Monocytes Percent Auto 5.6 % (0.0-11.0); Neutrophils Percent Auto 79.1 % (42.0-72.0); Platelet Count* 227 K/uL (140-440); RDW Coefficient of Variation % 13.9 % (11.5-15.5); Red Blood Count 4.53 m/uL (4.00-5.20); White Blood Count* 10.26 K/uL (4.50-11.00)
[2023-08-27 06:56] LABS: Slide Review Reflex No
[2023-08-27 07:02] LABS: Chloride* 99 mmol/L (96-114); Potassium* 3.8 mmol/L (3.6-5.1); Sodium* 135 mmol/L (135-149)
[2023-08-27 07:05] LABS: Anion Gap 6 mEq/L (7-15); Blood Urea Nitrogen* 24 mg/dL (7-30); Calcium* 8.7 mg/dL (8.4-10.6); Carbon Dioxide* 30 mmol/L (20-32); Creatinine* 0.8 mg/dL (0.5-1.5); Est. Creatinine Clearance* 48.43; Estimated Glomerular Filt Rate 82 ml/min; Glucose* 110 mg/dL (60-115)
[2023-08-27 07:42] VITALS: PULSE 65
--- NOTE | 2023-08-27 09:55 | PM.DS1 ---
DS: Providers Provider Date Seen: 08/27/23 Date of admission: 08/25/23 17:54 Primary care physician: Delores Goncalves DO Admitting Clinician: Alfred Hanna MD Attending Physician on discharge: Vivien Romero MD Date of Discharge: 08/27/23 DS: Diagnosis Discharge Diagnosis (1) Acute diastolic heart failure with preserved ejection fraction: Status: Acute Problem details: - likely 2/2 new onset a fib with RVR - TTE obtained while patient was in the emergency department on 08/25/23 demonstrated the followin. Normal LV chamber size and wall thickness with normal global systolic function and estimated EF of 55-60%. 2. Mildly enlarged left atrium. 3. Right ventricular cavity size is normal with normal systolic RV function. 4. Mitral valve sclerosis with mild to moderate mitral regurgitation. 5. No pericardial effusion. (2) Atrial fibrillation with rapid ventricular response: Status: Acute Problem details: - Diltiazem 20 mg IV in the emergency department slowed HR from 160s-120s - upon admission, initiated oral Metoprolol BID, prn IV Metoprolol, scheduled IR Diltiazem Q6H - Transitioned from IR to ER Diltiazem 08/25 pm, rate remained stable and no recurrence of RVR noted - on Apixaban for anticoagulation (3) Pleural effusion due to congestive heart failure: Status: Acute Problem details: - bilateral pleural effusions noted incidentally on admission imaging - given IV Furosemide 40mg x2 - did not require further diuresis, remained stable on RA - routine f/u with PCP to assess respiratory status (4) Hypothyroidism: Status: Acute Problem details: - on 88mcg of Levothyroxine - TSH 1 on 08/25/23; patient considering lowering dose to 88mcg 5 days/week to increase TSH given new onset a fib DS: Summary Hospital Course Hospital Course: Tia was admitted on 08/24 with new onset AFib with RVR, also noted to have bilateral pleural effusions. TTE revealed preserved EF with mild diastolic dysfunction, no significant valvular abnormalities. Treated with IV Lasix x2 for diuresis, given pleural effusions. After admission, remained stable on room air and did not require further diuresis. She received IV Diltiazem in the ED which slowed HR from 160s --> 120s. Upon arrival to the floor, started on oral Metoprolol (25mg BID) in addition to short-acting Diltiazem. Apixaban initiated for stroke prophylaxis. TSH noted to be 1.4; discussed decreasing dose of Levothyroxine from 7 -->5 days/week to increase TSH given age and atrial fibrillation. After 24 hours of stability, transitioned from IR to ER Diltiazem at at bedtime. Patient remained in rate controlled atrial fibrillation during stay and was appropriate for discharge home on 08/27/2023. She will see PCP in close f/u for medication management, hospital stay review, Cardiology referral. Status at Discharge Functional status at discharge: independent ambulation Time Spent with Patient Time attestation: Total time spent providing and/or coordinating discharge services: Time spent: Greater than 30 minutes Specific discharge activities: Medication reconciliation, education, results review Exam Narrative: Exam Narrative: GEN: Alert and oriented, sitting comfortably in bed and speaking in full sentences without tachypnea HEENT: EOMIs bilaterally, no scleral icterus CV: Irregularly irregular rhythm, rate 60-70s R: No wheezing, decreased bibasilar breath sounds Ext: wwp, no concerning edema Skin: No concerning skin lesions or rashes on exposed skin Neuro: Nonfocal Psych: Appropriate Const: Vital Signs, click to edit/add: Vital Signs - 24 hr 08/26/23 13:01 08/26/23 17:13 08/26/23 17:15 Temperature 97.8 F 97.6 F Pulse Rate Pulse Rate [Pulse Oximeter] 94 69 Respiratory Rate 20 20 20 Blood Pressure [Le ft Arm] 102/74 103/62 Pulse Oximetry 94 94 94 Oxygen Delivery Ut thod Room Air Room Air Room Air 08/26/23 17:17 08/26/23 19:59 08/26/23 23:55 Temperature 98.0 F Pulse Rate 74 71 Pulse Rate [Pulse Oximeter] 88 Respiratory Rate 20 Blood Pressure [Le ft Arm] 126/76 Pulse Oximetry 95 Oxygen Delivery Ut thod Room Air 08/26/23 23:55 08/26/23 23:55 08/26/23 23:55 Temperature 97.7 F Pulse Rate Pulse Rate [Pulse Oximeter] 75 Respiratory Rate 18 20 18 Blood Pressure [Le ft Arm] 123/85 Pulse Oximetry 95 95 Oxygen Delivery Ut thod Room Air Room Air 08/27/23 04:35 08/27/23 07:42 Temperature 97.6 F Pulse Rate 65 Pulse Rate [Pulse Oximeter] 79 Respiratory Rate 14 Blood Pressure [Le ft Arm] 146/91 H Pulse Oximetry 95 Oxygen Delivery Me thod Room Air DS: Data Data Completed and Pending Labs on day of discharge: Labs from last 24 hours 08/27/23 06:23 WBC 10.26 RBC 4.53 Hgb 12.1 Hct 38.1 MCV 84 MCH 27 MCHC 32 RDW Coeff of Burke 13.9 Plt Count 227 Neut % (Auto) 79.1 H Lymph % (Auto) 14.7 L [place] % (Auto) 5.6 Eos % (Auto) 0.3 Baso % (Auto) 0.1 Neut # (Auto) 8.10 H Lymph # (Auto) 1.50 [place] # (Auto) 0.60 Eos # (Auto) 0.03 Baso # (Auto) 0.01 Abs Immat Gran (auto) 0.02 Imm/Tot Granulo (auto) 0.2 Sodium 135 Potassium 3.8 Chloride 99 Carbon Dioxide 30 Anion Gap 6 L BUN 24 Creatinine 0.8 Estimated Creat Clear 48.43 Estimated GFR 82 Glucose 110 Calcium 8.7 Discharge Plan Discharge Disposition: Home, Self-Care Date of Admission: 08/25/23 17:54 Attending Provider on Discharge: Vivien Romero Primary Care Provider: Delores Goncalves Condition: Improved Anticipated Discharge Date/Time: 08/27/23 09:41 Discharge Medications: New diltiazem HCl [DILT-XR] 120 mg Capsule,Ext.Rel 24h Degradable 120 mg PO HS Qty: 30 0RF metoprolol tartrate 25 mg Tablet 25 mg PO BID Qty: 60 0RF Eliquis 5 mg Tablet 5 mg PO BID Qty: 60 0RF Continued omeprazole 40 mg capsule,delayed release(DR/EC) 40 mg PO DAILY escitalopram oxalate 10 mg tablet 10 mg PO DAILY levothyroxine 88 mcg tablet 88 mcg PO DAILY tinnitus supplement Rx Instructions: unknown supplement for tinnitus Discharge Orders: Discharge Order (Routine); Ordered 08/27/23 Ordered By: Vivien Romero Patient Education: Metoprolol (By mouth), Diltiazem (By mouth), Apixaban (By mouth) (Eliquis) Additional Instructions: New Medications at [facility]: - Metoprolol (twice/day, heart rate control) - Diltiazem (take at bedtime, heart rate control) - Rivaroxaban (twice/day, blood thinner) Other Medication changes: - Consider decreasing your Levothyroxine to 5 days/week (TSH was on the lower side, which means your thyroid function is on the higher side) - Continue your daily Magnesium supplementation I would also recommend getting a pulse oximeter at the pharmacy: this checks your heart rate and oxygen saturation. If your oxygen saturation is <89% at rest, or your heart rate is greater than 110 beats per minute at rest, you should be seen in followup. Activity Level: Activity as Tolerated Follow Up Appointments: Kishore Barreto MD [Staff Physician] - Delores Goncalves DO [Primary Care Provider] - 09/02/23 11:00 am ([facility] for follow-up, and med check) Forms: [employer] Info Instructions
[2023-08-27] MEDS: METOPROLOL TARTRATE 25 MG TABLET PO (10:14)
[2023-08-27] MEDS: dilTIAZem 120 MG CAP.ER.24H PO (10:15)
[2023-08-27] MEDS: APIXABAN 5 MG TABLET PO (10:15)
[2023-08-27] MEDS: SODIUM CHLORIDE 0.9 % (FLUSH) 10 ML SYRINGE 5 ML IVF (10:15)
[2023-08-27 10:45] VITALS: RESP 20; O2SAT 96
[2023-08-27 10:46] VITALS: BP 142/89; PULSE 71; RESP 20; TEMP 36.6; O2SAT 96
--- NOTE | 2023-08-27 15:48 | PC.NURSE ---
Discharge - Pt alert, oriented, cooperative. Up independently in room, tolerating RA and regular diet. Pt reported feeling much better than her original admission. Pt denied pain, SOB, nausea and vomiting. IV removed with catheter intact. Discharge education provided with pt verbalizing understanding. Pt discharged to home via wheelchair with family member at approximately 1256.
== END 2023-08-27 12:56 | disposition home or self-care (01) | DRG 293 ==
LOC: ED 15:46 → MEDSURG 16:58
PROVIDERS: Family Medicine; Admitting Provider Internal Medicine; Emergency Provider Emergency Medicine Emergency Medical Services; PCP Family Medicine; Visit Provider Internal Medicine
DX: I50.31 Acute diastolic (congestive) heart failure (principal); I48.91 Unspecified atrial fibrillation; R06.02 Shortness of breath; E03.9 Hypothyroidism, unspecified
CPT/HCPCS: 36415; 71046; 71275; 80048; 83735; 83880; 84443; 84484; 85025; 85027; 85379; 86140; 93005; 93306; 94640; 94761; 99284; 99285; A9270; J1940; J2919; Q9957; Q9967

== ENCOUNTER 2023-08-30 00:11 | Emergency (ER) | payer OTHER, SELFPAY ==
[2023-08-30 00:16] VITALS: BP 124/86; PULSE 76; RESP 18; TEMP 36.7; O2SAT 97; BMI 29.9
--- NOTE | 2023-08-30 00:31 | ED.GENADULT ---
HPI - General Adult General Chief complaint: Arrhythmia/Palpitations Stated complaint: erratic heartbeat Time Seen by Provider: 08/30/23 00:25 History of Present Illness HPI narrative: was recently hospitalized for a-fib and pulmonary edema . new diagnosis of a-fib. states they were not able to convert rhythm, but did control the rate. Rate has been variable tonight, has recorded rates varying from 50s-110s. states of nausea this AM. denies chest pain or dyspnea . states she felt heart racing after taking dog out and in and didn 't seem to want to slow down after 10 minutes. measured HR with pulse oxymeter 63-year-old woman presenting to the emergency department with concern of irregular heartbeat. Was discharged a couple of days ago after being admitted for efforts at rate control for AFib with RVR and congestive heart failure and pleural effusion. This morning had been experiencing a little bit nausea. Was taking the dog for a walk tonight and then noted her heart was racing. She monitored heart rate for period of time and then just thought she should be evaluated again. Is not experiencing chest pain or shortness of breath. No fever. She is anticoagulated with apixaban. As she was measuring her heart rate seemed to vary between 50s in 110 or so. See discharge summation below Discharge Diagnosis (1) Acute diastolic heart failure with preserved ejection fraction: Status: Acute Problem details: - likely 2/2 new onset a fib with RVR - TTE obtained while patient was in the emergency department on 08/25/23 demonstrated the followin. Normal LV chamber size and wall thickness with normal global systolic function and estimated EF of 55-60%. 2. Mildly enlarged left atrium. 3. Right ventricular cavity size is normal with normal systolic RV function. 4. Mitral valve sclerosis with mild to moderate mitral regurgitation. 5. No pericardial effusion. (2) Atrial fibrillation with rapid ventricular response: Status: Acute Problem details: - Diltiazem 20 mg IV in the emergency department slowed HR from 160s-120s - upon admission, initiated oral Metoprolol BID, prn IV Metoprolol, scheduled IR Diltiazem Q6H - Transitioned from IR to ER Diltiazem 08/25 pm, rate remained stable and no recurrence of RVR noted - on Apixaban for anticoagulation (3) Pleural effusion due to congestive heart failure: Status: Acute Problem details: - bilateral pleural effusions noted incidentally on admission imaging - given IV Furosemide 40mg x2 - did not require further diuresis, remained stable on RA - routine f/u with PCP to assess respiratory status (4) Hypothyroidism: Status: Acute Problem details: - on 88mcg of Levothyroxine - TSH 1 on 08/25/23; patient considering lowering dose to 88mcg 5 days/week to increase TSH given new onset a fib Related Data Home Medications ?Medication ?Instructions ?Recorded ?Confirmed escitalopram oxalate 10 mg tablet 10 mg PO DAILY 08/25/23 08/25/23 levothyroxine 88 mcg tablet 88 mcg PO DAILY 08/25/23 08/25/23 omeprazole 40 mg capsule,delayed 40 mg PO DAILY 08/25/23 08/25/23 release tinnitus supplement 08/25/23 Previous Rx's ?Medication ?Instructions ?Recorded apixaban 5 mg tablet (Eliquis) 5 mg PO BID #60 tabs 08/27/23 diltiazem HCl 120 mg 120 mg PO HS #30 caps 08/27/23 capsule,extended release 24 hr, controlled (DILT-XR) metoprolol tartrate 25 mg tablet 25 mg PO BID #60 tabs 08/27/23 Allergies Allergy/AdvReac Type Severity Reaction Status Date / Time cucumber Allergy Mild Verified 08/25/23 17:49 latex Allergy Mild Verified 08/25/23 17:49 Penicillins Allergy Verified 08/30/23 01:09 tizanidine Allergy Verified 08/30/23 01:09 Lettuce Allergy Mild Uncoded 08/25/23 17:49 Peppers Allergy Mild Uncoded 08/25/23 17:49 Review of Systems Status of ROS: Reports: 6 or more systems reviewed and unremarkable except as noted in History and below [facility] Medical History Acute diastolic heart failure with preserved ejection fraction ?I50.31 - Acute diastolic (congestive) heart failure (ICD-10) Diastolic heart failure, NYHA class 3 ?I50.30 - Unspecified diastolic (congestive) heart failure (ICD-10) Congestive heart failure ?I50.9 - Heart failure, unspecified (ICD-10) Hypothyroidism ?E03.9 - Hypothyroidism, unspecified (ICD-10) Dyspepsia ?R10.13 - Epigastric pain (ICD-10) Hyperlipidemia ?E78.5 - Hyperlipidemia, unspecified (ICD-10) Vitamin D deficiency ?E55.9 - Vitamin D deficiency, unspecified (ICD-10) Primary hypothyroidism ?E03.9 - Hypothyroidism, unspecified (ICD-10) Sensorineural hearing loss (SNHL) of both ears ?H90.3 - Sensorineural hearing loss, bilateral (ICD-10) History of ileus ?Z87.19 - Personal history of other diseases of the digestive system (ICD-10) Depression with anxiety ?F41.8 - Other specified anxiety disorders (ICD-10) Tinnitus of both ears ?H93.13 - Tinnitus, bilateral (ICD-10) Chronic back pain ?M54.9 - Dorsalgia, unspecified (ICD-10) ?G89.29 - Other chronic pain (ICD-10) Degenerative disc disease Surgical History Status post lumbar spinal fusion ?Z98.1 - Arthrodesis status (ICD-10) Family History Mother Cancer Diabetes Heart disease Aunt Breast cancer Crohn's disease Uncle Colon cancer Maternal Grandmother Diabetes Paternal Grandmother Diabetes Father Heart disease High blood pressure Son Crohn's disease Social History Narrative: 08/25/2023: Lives in brothers RV with her pet dog. 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 living situation?: I have a place to live at present, but am concerned about future Problems where you live: no known problems Problems where you live details: no running water - RV In the past 12 months, utilities in danger of being shut off: unable to answer In past 12 months, lack of transportation kept you from medical appts, meetings, work, or getting things needed for daily living: yes In the past 12 mos, have been you worried that your food would run out before you had money to buy more?: sometimes true In the past 12 mos, the food you bought just didn't last and you didn't have money to buy more?: sometimes true Highest level of school completed/degree received: some college, no degree Smoking Status: Never smoker Do you use any of these nicotine containing products: None Second hand tobacco smoke exposure: No How often do you have a drink containing alcohol: monthly or less Alcohol type: beer How many standard drinks containing alcohol do you have on a typical day: 3 or 4 How often do you have six or more drinks on one occasion: Less than monthly AUDIT-C Alcohol total score: 3 Non-prescribed substance use: denies use Caffeine: Yes (daily tea drinker) How often does anyone, including family, friends and others, physically hurt you: never How often does anyone, including family, friends and others, insult or talk down to you: fairly often How often does anyone, including family, friends and others, threaten you with harm: never How often does anyone, including family, friends and others, scream or curse at you: fairly often service: No Exam Narrative: Exam Narrative: Very pleasant. Breathing easily. Subtly anxious. Skin is warm and dry. Lungs appear to be clear. Maybe some trace basilar crepitus. She is breathing easily. Heart in regular rate but is irregular. No JVD. Skin is warm and dry and well-perfused without notable edema. Const: Vital Signs, click to edit/add: Vital Signs - 24 hr 08/30/23 00:16 Temperature 98.1 F Pulse Rate [Right Apical] 76 Respiratory Rate 18 Blood Pressure [Ri ght Upper Arm] 124/86 Pulse Oximetry 97 Oxygen Delivery Me thod Room Air Documenting provider has reviewed patient's vital signs: yes Course Vital Signs Vital signs: Initial Vital Signs Temperature 98.1 F 08/30/23 00:16 Temperature Source Temporal Artery Scan 08/30/23 00:16 Pulse Rate 76 08/30/23 00:16 Pulse Rhythm Regular 08/30/23 00:16 Respiratory Rate 18 08/30/23 00:16 Blood Pressure 124/86 08/30/23 00:16 Blood Pressure Mean 98 08/30/23 00:16 Blood Pressure Position Sitting 08/30/23 00:16 Pulse Oximetry 97 08/30/23 00:16 Oxygen Delivery Method Room Air 08/30/23 00:16 Vital Signs Temperature 98.1 F 08/30/23 00:16 Pulse Rate 76 08/30/23 00:16 Respiratory Rate 18 08/30/23 00:16 Blood Pressure 124/86 08/30/23 00:16 Pulse Oximetry 97 08/30/23 00:16 Oxygen Delivery Method Room Air 08/30/23 00:16 Temperature 98.1 F 08/30/23 00:16 Pulse Rate 76 08/30/23 00:16 Respiratory Rate 18 08/30/23 00:16 Blood Pressure 124/86 08/30/23 00:16 Pulse Oximetry 97 08/30/23 00:16 Oxygen Delivery Method Room Air 08/30/23 00:16 Medical Decision Making MDM Narrative Medical decision making narrative: Will monitor for time in the emergency department. Does appear relatively well at this point. Vitals are reassuring. I think there might be some challenging measuring heart rate in the setting of atrial fibrillation. Does appear to be still in atrial fibrillation on monitor and upon reviewing EKG Recently a pretty thorough evaluation. I would anticipate departure here in the emergency department pending further developments. We did discuss further labs and other testing but would not seem to be necessary at this time No further events in the ER. See patient discharge plan for further discussion Medical Records Medical records reviewed: Yes I reviewed the patient's medical records ECG Data Attestation: I personally reviewed and interpreted this ECG as follows: (Atrial fibrillation at 69) Discharge Plan Discharge Clinical Impression: Atrial fibrillation Patient Disposition: Home w/ Parent or Adult Condition: Improved Additional Instructions: I am reassured by what I am seeing here today. I think it is hard sometimes to know what your persistent heart rate is especially in the setting of an irregular heartbeat like atrial fibrillation. Persistently, repeatedly high or low heart rates particularly if accompanied by shortness of breath, chest pain, lightheadedness we also warrant return to the emergency department. At this time I would continue with your usual dosing of your medications including your metoprolol. Prescriptions: No Action omeprazole 40 mg capsule,delayed release(DR/EC) 40 mg PO DAILY escitalopram oxalate 10 mg tablet 10 mg PO DAILY levothyroxine 88 mcg tablet 88 mcg PO DAILY tinnitus supplement Rx Instructions: unknown supplement for tinnitus diltiazem HCl [DILT-XR] 120 mg Capsule,Ext.Rel 24h Degradable 120 mg PO HS Qty: 30 0RF metoprolol tartrate 25 mg Tablet 25 mg PO BID Qty: 60 0RF Eliquis 5 mg Tablet 5 mg PO BID Qty: 60 0RF Follow Up/Referrals: Delores Goncalves DO [Primary Care Provider] - Stand Alone Forms: [facility] Info Instructions
== END 2023-08-30 01:43 | disposition home or self-care (01) ==
PROVIDERS: Emergency Provider Family Medicine; PCP Family Medicine
DX: I48.91 Unspecified atrial fibrillation (principal)
CPT/HCPCS: 99284

== ENCOUNTER 2024-01-21 13:50 | Outpatient (CLI) | payer OTHER, SELFPAY | END 2024-01-21 13:51 | disposition home or self-care (01) | LOC: AMB 01-26 02:40 | PROVIDERS: PCP Family Medicine; Visit Provider Family Medicine | DX: R42 Dizziness and giddiness (principal); R53.1 Weakness; R19.7 Diarrhea, unspecified; R11.0 Nausea; I49.9 Cardiac arrhythmia, unspecified | CPT/HCPCS: A0425; A0427 ==

== ENCOUNTER 2024-01-21 14:17 | Emergency (ER) | payer OTHER, SELFPAY ==
[2024-01-21] VITALS (23 sets, daily range): BP systolic 81–108; BP diastolic 48–73; PULSE 35–58; RESP 18; TEMP 36.5; O2SAT 87–100; BMI 25.3
[2024-01-21] MEDS: 0.9 % SODIUM CHLORIDE 500 ML 500 ML IV (14:35)
--- NOTE | 2024-01-21 14:44 | ED.DIZZY ---
HPI - Dizziness General Chief Complaint: Dizziness/Vertigo Stated Complaint: Bradycardia Time Seen by Provider: 01/21/24 14:31 History of Present Illness HPI Narrative: This 63-year-old female comes in by ambulance reporting some lightheadedness. This began over the past few hours. She states that she woke up this morning feeling normal and took her medications at about 11:00 a.m.. She has chronic atrial fibrillation and is taking Eliquis, diltiazem, and metoprolol. She took her medications at about 11:00 a.m. and now arrives here with a heart rate at 40 beats per minute and blood pressure around 80-90 for systolic value. She does not report any chest pain. She states that she has had some elevated heart rate at times in the past. She also reports some diarrhea recently. She has not had any change in her medications recently. Related Data Home Medications ?Medication ?Instructions ?Recorded ?Confirmed levothyroxine 88 mcg tablet 88 mcg PO DAILY 08/25/23 01/21/24 omeprazole 40 mg capsule,delayed 40 mg PO DAILY 08/25/23 01/21/24 release melatonin 5 mg capsule 5 - 15 mg PO QHS 12/16/23 01/21/24 Previous Rx's ?Medication ?Instructions ?Recorded apixaban 5 mg tablet (Eliquis) 5 mg PO BID #60 tabs 08/27/23 diltiazem HCl 120 mg 120 mg PO HS #30 caps 08/27/23 capsule,extended release 24 hr, controlled (DILT-XR) metoprolol tartrate 25 mg tablet 25 mg PO BID #60 tabs 08/27/23 tizanidine 4 mg tablet 4 mg PO Q8H PRN muscle spasticity 12/16/23 #30 tabs Allergies Allergy/AdvReac Type Severity Reaction Status Date / Time cucumber Allergy Mild Verified 01/21/24 14:28 latex Allergy Mild Verified 01/21/24 14:28 Penicillins Allergy Verified 12/16/23 12:58 Lettuce Allergy Mild Uncoded 12/16/23 12:58 Peppers Allergy Mild Uncoded 12/16/23 12:58 Review of Systems Status of ROS: Reports: 10 or more systems reviewed and unremarkable except as noted in History and below Narrative: Constitutional: No fevers, no weight gain or loss. Eyes: No discharge. No vision changes. HENT: No congestion, no sore throat, no ear pain. Cardiovascular: No chest pain, no palpitations. Respiratory: No shortness of breath, no wheezes, no cough. Gastrointestinal: No abdominal pain, no vomiting, no diarrhea. Genitourinary: No dysuria, no hematuria. Musculoskeletal: Normal range of motion. Skin: No rashes, no pruritis. Neurological: No weakness, sensory change, speech change. Endo/Heme/Allergies: No bruising or bleeding. No polydipsia. Pysch: no suicidality, no anxiety, no insomnia. All other systems reviewed and are negative. [facility] Medical History (Updated 01/21/24 @ 16:23 by Jeffrey Hansen MD) Acute diastolic heart failure with preserved ejection fraction ?I50.31 - Acute diastolic (congestive) heart failure (ICD-10) Diastolic heart failure, NYHA class 3 ?I50.30 - Unspecified diastolic (congestive) heart failure (ICD-10) Congestive heart failure ?I50.9 - Heart failure, unspecified (ICD-10) Hypothyroidism ?E03.9 - Hypothyroidism, unspecified (ICD-10) Dyspepsia ?R10.13 - Epigastric pain (ICD-10) Hyperlipidemia ?E78.5 - Hyperlipidemia, unspecified (ICD-10) Vitamin D deficiency ?E55.9 - Vitamin D deficiency, unspecified (ICD-10) Primary hypothyroidism ?E03.9 - Hypothyroidism, unspecified (ICD-10) Sensorineural hearing loss (SNHL) of both ears ?H90.3 - Sensorineural hearing loss, bilateral (ICD-10) History of ileus ?Z87.19 - Personal history of other diseases of the digestive system (ICD-10) Depression with anxiety ?F41.8 - Other specified anxiety disorders (ICD-10) Tinnitus of both ears ?H93.13 - Tinnitus, bilateral (ICD-10) Chronic back pain ?M54.9 - Dorsalgia, unspecified (ICD-10) ?G89.29 - Other chronic pain (ICD-10) Degenerative disc disease Surgical History Status post lumbar spinal fusion ?Z98.1 - Arthrodesis status (ICD-10) Family History Mother Cancer Diabetes Heart disease Aunt Breast cancer Crohn's disease Uncle Colon cancer Maternal Grandmother Diabetes Paternal Grandmother Diabetes Father Heart disease High blood pressure Son Crohn's disease Social History Narrative: 08/25/2023: Lives in brothers RV with her pet dog. 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 living situation?: I have a place to live at present, but am concerned about future Problems where you live: no known problems Problems where you live details: no running water - RV In the past 12 months, utilities in danger of being shut off: unable to answer In the past 12 mos, have been you worried that your food would run out before you had money to buy more?: sometimes true In the past 12 mos, the food you bought just didn't last and you didn't have money to buy more?: sometimes true Highest level of school completed/degree received: some college, no degree Smoking Status: Never smoker Do you use any of these nicotine containing products: None Second hand tobacco smoke exposure: No How often do you have a drink containing alcohol: monthly or less Alcohol type: beer How many standard drinks containing alcohol do you have on a typical day: 3 or 4 How often do you have six or more drinks on one occasion: Less than monthly AUDIT-C Alcohol total score: 3 Non-prescribed substance use: marijuana (any form) Caffeine: Yes (daily tea drinker) How often does anyone, including family, friends and others, physically hurt you: never How often does anyone, including family, friends and others, insult or talk down to you: fairly often How often does anyone, including family, friends and others, threaten you with harm: never How often does anyone, including family, friends and others, scream or curse at you: fairly often service: No Health Related Social Needs: housing instability, housed, with risk of homelessness (Z59.811), food insecurity (Z59.41) and Other personal risk factors, not elsewhere classified (Z91.89) Exam Narrative: Exam Narrative: Constitutional: Well-developed, well-nourished, no acute distress. HEENT: Normocephalic, atraumatic. Neck: Normal range of motion. Nontender. Supple. Heart: Irregular. No murmurs. Bradycardia. Intact distal pulses. Lungs: Clear to auscultation. No chest discomfort. No wheezes, rhonchi, or rales. Abdomen: Normal bowel sounds. Nontender. No rebound tenderness. Genitalia: Deferred. Back: No midline tenderness. Normal range of motion. Extremities: Normal range of motion. No injury. No pedal edema. Skin: Intact. No rash. Warm. No erythema or pallor. Neurologic: No altered sensation. No weakness. Alert and oriented. Psychiatric: No suicidality. No anxiety or depression. No insomnia. Nursing notes and vitals signs are reviewed. Const: Vital Signs, click to edit/add: Vital Signs - 24 hr 01/21/24 14:24 01/21/24 14:29 01/21/24 14:30 Temperature 97.7 F Pulse Rate 41 L 36 L Pulse Rate [Right Pulse Oximeter] 41 L Respiratory Rate 18 Blood Pressure 95/55 L Blood Pressure [Ri ght Upper Arm] 95/55 L Pulse Oximetry 100 100 93 Oxygen Delivery Me thod Room Air 01/21/24 14:38 01/21/24 14:40 01/21/24 14:45 Temperature Pulse Rate 38 L 39 L Pulse Rate [Right Pulse Oximeter] Respiratory Rate Blood Pressure 81/48 L 97/54 L Blood Pressure [Ri ght Upper Arm] Pulse Oximetry 100 100 Oxygen Delivery Me thod 01/21/24 14:46 01/21/24 15:00 01/21/24 15:01 Temperature Pulse Rate 37 L 38 L 40 L Pulse Rate [Right Pulse Oximeter] Respiratory Rate Blood Pressure 98/49 L 87/64 L Blood Pressure [Ri ght Upper Arm] Pulse Oximetry 100 96 100 Oxygen Delivery Me thod 01/21/24 15:01 01/21/24 15:02 01/21/24 15:15 Temperature Pulse Rate 40 L 41 L 35 L Pulse Rate [Right Pulse Oximeter] Respiratory Rate Blood Pressure 87/64 L Blood Pressure [Ri ght Upper Arm] Pulse Oximetry 100 100 100 Oxygen Delivery Me thod 01/21/24 15:17 01/21/24 15:18 01/21/24 15:30 Temperature Pulse Rate 38 L 42 L 45 L Pulse Rate [Right Pulse Oximeter] Respiratory Rate Blood Pressure 97/58 L Blood Pressure [Ri ght Upper Arm] Pulse Oximetry 99 100 98 Oxygen Delivery Me thod 01/21/24 15:31 01/21/24 15:45 01/21/24 15:46 Temperature Pulse Rate 39 L 39 L Pulse Rate [Right Pulse Oximeter] Respiratory Rate Blood Pressure 95/60 90/71 Blood Pressure [Ri t Upper Arm] Pulse Oximetry 99 99 Oxygen Delivery Me thod 01/21/24 15:47 01/21/24 16:00 01/21/24 16:02 Temperature Pulse Rate 40 L 48 L 48 L Pulse Rate [Right Pulse Oximeter] Respiratory Rate Blood Pressure 103/62 Blood Pressure [Ri t Upper Arm] Pulse Oximetry 87 L 99 94 Oxygen Delivery Me thod Course Vital Signs Vital signs: Initial Vital Signs Temperature 97.7 F 01/21/24 14:24 Temperature Source Temporal Artery Scan 01/21/24 14:24 Pulse Rate 41 L 01/21/24 14:24 Pulse Rhythm Regularly Irregular 01/21/24 14:24 Pulse Strength 3+ Normal 01/21/24 14:24 Respiratory Rate 18 01/21/24 14:24 Blood Pressure 95/55 L 01/21/24 14:24 Blood Pressure Mean 68 L 01/21/24 14:24 Blood Pressure Position Sitting 01/21/24 14:24 Pulse Oximetry 100 01/21/24 14:24 Oxygen Delivery Method Room Air 01/21/24 14:24 Vital Signs Temperature 97.7 F 01/21/24 14:24 Pulse Rate 41 L 01/21/24 14:24 Respiratory Rate 18 01/21/24 14:24 Blood Pressure 95/55 L 01/21/24 14:24 Pulse Oximetry 100 01/21/24 14:24 Oxygen Delivery Method Room Air 01/21/24 14:24 Temperature 97.7 F 01/21/24 14:24 Pulse Rate 48 L 01/21/24 16:02 Respiratory Rate 18 01/21/24 14:24 Blood Pressure 103/62 01/21/24 16:02 Pulse Oximetry 94 01/21/24 16:02 Oxygen Delivery Method Room Air 01/21/24 14:24 Medications Administered Medications: Discontinued Medications Generic Name Dose Route Start Last Admin Trade Name Freq PRN Reason Stop Dose Admin Sodium Chloride 500 mls @ 500 mls/hr 01/21/24 14:42 01/21/24 15:15 0.9 % Sodium Chloride 500 Ml IV 01/21/24 15:41 Infused .Q1H ONE Infusion MDM - Dizziness MDM Narrative Medical decision making narrative: This patient comes in because of lightheadedness and was noted to have bradycardia with atrial fibrillation. She states that she felt fine this morning upon awakening and took her medicines later in the morning at about 11:00 a.m.. This included metoprolol and diltiazem. These are not new medicines for her. She then began to feel lightheaded. An IV was established where she did receive 500 mL of normal saline and labs are acquired. Her labs returned with reassuring findings. Throughout the stay here her heart rate improved to around 50 beats per minute. I did recommend admission just because her bradycardia is causing some lightheadedness. She prefers to return home stating that she has a dog that she takes care of. I did express concern about her slow heart rate and did want her to have loss of consciousness or fall. She did successfully completed good road test and her vital signs are improving with increased heart rate and increased blood pressure. I advised her to hold metoprolol and diltiazem with the understanding that she may have some tachycardia as a result. She will need to follow-up with her primary physician for ongoing management regarding these medicines. Lab Data Labs: Lab Results 01/21/24 01/21/24 Range/Units 14:43 14:57 WBC 4.64 (4.50-11.00) K/uL RBC 4.50 (4.00-5.20) m/uL Hgb 12.1 (12.0-16.0) gm/dL Hct 38.2 (33.0-51.0) % MCV 85 (80-100) fL MCH 27 (26-34) pg MCHC 32 (32-36) gm/dL RDW Coeff of Burke 14.2 (11.5-15.5) % Plt Count 125 L (140-440) K/uL Neut % (Auto) 67.5 (42.0-72.0) % Lymph % (Auto) 20.7 (20-44) % Cavalier % (Auto) 9.3 (0.0-11.0) % Eos % (Auto) 1.7 (0.0-7.0) % Baso % (Auto) 0.6 (0.0-3.0) % Neut # (Auto) 3.13 (1.7-7.0) K/uL Lymph # (Auto) 0.96 (0.90-2.90) K/uL Cavalier # (Auto) 0.40 (0.00-0.90) K/UL Eos # (Auto) 0.08 (0.00-0.50) K/uL Baso # (Auto) 0.03 (0.00-0.30) K/uL Abs Immat Gran (auto) 0.01 (0.00-0.30) K/uL Imm/Tot Granulo (auto) 0.2 % Sodium 136 (135-149) mmol/L Potassium 4.8 (3.6-5.1) mmol/L Chloride 103 (96-114) mmol/L Carbon Dioxide 26 (20-32) mmol/L Anion Gap 7 (7-15) mEq/L BUN 14 (7-30) mg/dL Creatinine 0.9 (0.5-1.5) mg/dL Estimated Creat Clear 50.47 Estimated GFR 71 ml/min Glucose 103 (60-115) mg/dL Calcium 8.5 (8.4-10.6) mg/dL POC Troponin I 0.00 L (0.01-0.04) ng/ml ECG Data Attestation: I personally reviewed and interpreted this ECG as follows: Interpretation: Atrial fibrillation with slow ventricular response. Rate is 40 beats per minute. There are no specific ST or T-wave abnormalities. Discharge Plan Discharge Clinical Impression: Bradycardia, Atrial fibrillation Additional Instructions: Increase activity as tolerated. Hold metoprolol and diltiazem and follow up with primary physician to review these medicines going forward. Return if symptoms are persistent or worsening. Prescriptions: No Action melatonin 5 mg capsule 5 - 15 mg PO QHS tizanidine 4 mg tablet 4 mg PO Q8H PRN (Reason: muscle spasticity) Qty: 30 1RF omeprazole 40 mg capsule,delayed release(DR/EC) 40 mg PO DAILY levothyroxine 88 mcg tablet 88 mcg PO DAILY diltiazem HCl [DILT-XR] 120 mg Capsule,Ext.Rel 24h Degradable 120 mg PO HS Qty: 30 0RF metoprolol tartrate 25 mg Tablet 25 mg PO BID Qty: 60 0RF Eliquis 5 mg Tablet 5 mg PO BID Qty: 60 0RF Follow Up/Referrals: Delores Goncalves DO [Primary Care Provider] -
[2024-01-21 15:09] LABS: Basophils Absolute Auto 0.03 K/uL (0.00-0.30); Basophils Percent Auto 0.6 % (0.0-3.0); Eosinophils Absolute Auto 0.08 K/uL (0.00-0.50); Eosinophils Percent Auto 1.7 % (0.0-7.0); Hematocrit 38.2 % (33.0-51.0); Hemoglobin* 12.1 gm/dL (12.0-16.0); Immature Granulocytes Abs Auto 0.01 K/uL (0.00-0.30); Immature Granulocytes Pct Auto 0.2 %; Lymphocytes Absolute Auto 0.96 K/uL (0.90-2.90); Lymphocytes Percent Auto 20.7 % (20-44); Mean Corpuscular HGB Conc 32 gm/dL (32-36); Mean Corpuscular Hemoglobin 27 pg (26-34); Mean Corpuscular Volume 85 fL (80-100); Monocytes Percent Auto 9.3 % (0.0-11.0); Neutrophils Absolute Auto 3.13 K/uL (1.7-7.0); Neutrophils Percent Auto 67.5 % (42.0-72.0); Platelet Count* 125 K/uL (140-440); RDW Coefficient of Variation % 14.2 % (11.5-15.5); White Blood Count* 4.64 K/uL (4.50-11.00)
[2024-01-21 15:14] LABS: Slide Review Reflex No
[2024-01-21 15:39] LABS: Chloride* 103 mmol/L (96-114); Sodium* 136 mmol/L (135-149)
[2024-01-21 15:40] LABS: Potassium* 4.8 mmol/L (3.6-5.1)
[2024-01-21 15:42] LABS: Creatinine* 0.9 mg/dL (0.5-1.5); Est. Creatinine Clearance* 50.47; Estimated Glomerular Filt Rate 71 ml/min
[2024-01-21 15:43] LABS: Anion Gap 7 mEq/L (7-15); Blood Urea Nitrogen* 14 mg/dL (7-30); Calcium* 8.5 mg/dL (8.4-10.6); Carbon Dioxide* 26 mmol/L (20-32); Glucose* 103 mg/dL (60-115)
== END 2024-01-21 16:34 | disposition home or self-care (01) ==
LOC: ED 15:21
PROVIDERS: Emergency Provider Emergency Medicine Emergency Medical Services; PCP Family Medicine
DX: I48.91 Unspecified atrial fibrillation (principal); R00.1 Bradycardia, unspecified
CPT/HCPCS: 36415; 80048; 84484; 85025; 93005; 99284; J7030

== ENCOUNTER 2024-02-14 10:14 | Emergency (ER) | payer OTHER, SELFPAY ==
[2024-02-14 10:20] VITALS: BP 105/72; PULSE 118; RESP 20; TEMP 36.4; O2SAT 99; BMI 25.0
--- NOTE | 2024-02-14 10:58 | ED.GENADULT ---
HPI - General Adult General Date Seen: 02/14/24 Chief complaint: Cough Stated complaint: Fever, cough Time Seen by Provider: 02/14/24 10:57 History of Present Illness HPI narrative: 63-year-old female who has a history of atrial fibrillation (on Eliquis, metoprolol. Was here in the ER about a month ago for dizziness and was found to be bradycardic with AFib. Sounds like it was suspected to be related to excess AV stan blockers.), hypothyroidism (levothyroxine), CHF with pleural effusion, depression/anxiety, low back trouble, presenting to the ER today for evaluation of cough. She had symptoms that started 3 days ago on with a runny nose. 2 days ago, on Thursday, she also developed cough. She has had some purulent sputum and some pinked and tinged sputum. Today she has only a little bit more blood when coughing. She has also been having headaches. She also had an episode of watery diarrhea this morning. She has had a fever around 102, T-max was 102.4? at home. She had been falling the old edge of ?feed a cold, starve a fever. So she has not been eating much the past couple of days. She has been feeling a bit worn down and tired since yesterday. She had some charges this morning and then had 1 episode of vomiting and 1 episode of loose stool. She is just feeling weaker. This morning her cough also turned a little bit more blood-tinged. Related Data Home Medications ?Medication ?Instructions ?Recorded ?Confirmed levothyroxine 88 mcg tablet 88 mcg PO DAILY 08/25/23 02/14/24 omeprazole 40 mg capsule,delayed 40 mg PO DAILY 08/25/23 02/14/24 release Previous Rx's ?Medication ?Instructions ?Recorded apixaban 5 mg tablet (Eliquis) 5 mg PO BID #60 tabs 08/27/23 metoprolol tartrate 25 mg tablet 25 mg PO BID #60 tabs 08/27/23 nirmatrelvir 300 mg (150 mg See Rx Instructions PO .COMPLEX 02/14/24 x2)-ritonavir 100 mg tablet,dose #30 ea pack (Paxlovid) ondansetron 4 mg disintegrating 4 mg PO Q8H PRN nausea and 02/14/24 tablet vomiting #10 tabs Allergies Allergy/AdvReac Type Severity Reaction Status Date / Time cucumber Allergy Mild Verified 01/21/24 14:28 latex Allergy Mild Verified 01/21/24 14:28 Penicillins Allergy Verified 12/16/23 12:58 Lettuce Allergy Mild Uncoded 12/16/23 12:58 Peppers Allergy Mild Uncoded 12/16/23 12:58 PFSH PFS Medical History (Updated 02/14/24 @ 12:27 by José Miguel Garrido MD) Acute diastolic heart failure with preserved ejection fraction ?I50.31 - Acute diastolic (congestive) heart failure (ICD-10) Diastolic heart failure, NYHA class 3 ?I50.30 - Unspecified diastolic (congestive) heart failure (ICD-10) Congestive heart failure ?I50.9 - Heart failure, unspecified (ICD-10) Hypothyroidism ?E03.9 - Hypothyroidism, unspecified (ICD-10) Dyspepsia ?R10.13 - Epigastric pain (ICD-10) Hyperlipidemia ?E78.5 - Hyperlipidemia, unspecified (ICD-10) Vitamin D deficiency ?E55.9 - Vitamin D deficiency, unspecified (ICD-10) Primary hypothyroidism ?E03.9 - Hypothyroidism, unspecified (ICD-10) Sensorineural hearing loss (SNHL) of both ears ?H90.3 - Sensorineural hearing loss, bilateral (ICD-10) History of ileus ?Z87.19 - Personal history of other diseases of the digestive system (ICD-10) Depression with anxiety ?F41.8 - Other specified anxiety disorders (ICD-10) Tinnitus of both ears ?H93.13 - Tinnitus, bilateral (ICD-10) Chronic back pain ?M54.9 - Dorsalgia, unspecified (ICD-10) ?G89.29 - Other chronic pain (ICD-10) Degenerative disc disease Surgical History Status post lumbar spinal fusion ?Z98.1 - Arthrodesis status (ICD-10) Family History Mother Cancer Diabetes Heart disease Aunt Breast cancer Crohn's disease Uncle Colon cancer Maternal Grandmother Diabetes Paternal Grandmother Diabetes Father Heart disease High blood pressure Son Crohn's disease Social History Narrative: 08/25/2023: Lives in brothers RV with her pet dog. 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 living situation?: I have a place to live at present, but am concerned about future Problems where you live: no known problems Problems where you live details: no running water - RV In the past 12 months, utilities in danger of being shut off: unable to answer In the past 12 mos, have been you worried that your food would run out before you had money to buy more?: sometimes true In the past 12 mos, the food you bought just didn't last and you didn't have money to buy more?: sometimes true Highest level of school completed/degree received: some college, no degree Smoking Status: Never smoker Do you use any of these nicotine containing products: None Second hand tobacco smoke exposure: No How often do you have a drink containing alcohol: monthly or less Alcohol type: beer How many standard drinks containing alcohol do you have on a typical day: 3 or 4 How often do you have six or more drinks on one occasion: Less than monthly AUDIT-C Alcohol total score: 3 Non-prescribed substance use: marijuana (any form) Caffeine: Yes (daily tea drinker) How often does anyone, including family, friends and others, physically hurt you: never How often does anyone, including family, friends and others, insult or talk down to you: fairly often How often does anyone, including family, friends and others, threaten you with harm: never How often does anyone, including family, friends and others, scream or curse at you: fairly often service: No Health Related Social Needs: housing instability, housed, with risk of homelessness (Z59.811), food insecurity (Z59.41) and Other personal risk factors, not elsewhere classified (Z91.89) Exam Narrative: Exam Narrative: Constitutional: Appears well-developed and well-nourished. Alert. Conversant. Non toxic. HENT: Head: Atraumatic. Nose: Nose normal. Mouth/Throat: Oral mucosa is clear but dry, not desiccated a crack no trismus. Pharynx normal. Tonsils symmetric. No tonsillar enlargement, erythema, or exudate. Tympanic membranes normal bilaterally. Ears normal Eyes: Conjunctivae normal. EOM normal. Pupils equal, round, and reactive to light. No scleral icterus. Neck: Normal range of motion. Neck supple. No tracheal deviation present. No JVD Cardiovascular: Tachycardic, irregularly irregular rhythm. No gallop. No friction rub. No murmur heard. Symmetric radial artery pulses Pulmonary/Chest: Effort normal. No stridor. No respiratory distress. No wheezes. She may have very faint right basilar rales, but this may be along artifact and referred upper airway sounds. No rhonchi . No tenderness. Abdominal: Soft. Bowel sounds normal. No distension. No mass. No tenderness. No rebound. No guarding. Musculoskeletal: RUE: Normal range of motion. No tenderness. No deformity LUE: Normal range of motion. No tenderness. No deformity RLE: Normal range of motion. No edema. No tenderness. No deformity LLE: Normal range of motion. No edema. No tenderness. No deformity Lymph: No cervical adenopathy. Neurological: Alert and oriented to person, place, and time. Normal strength. CN II-VII intact. No sensory deficit. GCS eye subscore is 4. GCS verbal subscore is 5. GCS motor subscore is 6. Normal coordination Skin: Skin is warm and dry. No rash noted. No pallor. Normal capillary refill. Psychiatric: Normal mood. Normal affect. Const: Vital Signs, click to edit/add: Vital Signs - 24 hr 02/14/24 10:20 Temperature 97.6 F Pulse Rate [Pulse Oximeter] 118 H Respiratory Rate 20 Blood Pressure [Ri ght Upper Arm] 105/72 Pulse Oximetry 99 Oxygen Delivery Me thod Room Air Course Course ED Course: Recheck-breathing easily. Oxygen level still above 90. Feeling better after Zofran. Tolerating p.o. fluids. Discussed test results with the patient. She is comfortable managing at home. Vital Signs Vital signs: Initial Vital Signs Temperature 97.6 F 02/14/24 10:20 Temperature Source Temporal Artery Scan 02/14/24 10:20 Pulse Rate 118 H 02/14/24 10:20 Respiratory Rate 20 02/14/24 10:20 Blood Pressure 105/72 02/14/24 10:20 Blood Pressure Mean 83 02/14/24 10:20 Pulse Oximetry 99 02/14/24 10:20 Oxygen Delivery Method Room Air 02/14/24 10:20 Vital Signs Temperature 97.6 F 02/14/24 10:20 Pulse Rate 118 H 02/14/24 10:20 Respiratory Rate 20 02/14/24 10:20 Blood Pressure 105/72 02/14/24 10:20 Pulse Oximetry 99 02/14/24 10:20 Oxygen Delivery Method Room Air 02/14/24 10:20 Temperature 97.6 F 02/14/24 10:20 Pulse Rate 118 H 02/14/24 10:20 Respiratory Rate 20 02/14/24 10:20 Blood Pressure 105/72 02/14/24 10:20 Pulse Oximetry 99 02/14/24 10:20 Oxygen Delivery Method Room Air 02/14/24 10:20 Medical Decision Making MDM Narrative Medical decision making narrative: This patient presents for evaluation of cough with small volume hemoptysis, fever, body aches, chills, nausea or vomiting. Symptoms ongoing for 3 days since Thursday. Chest x-ray negative for any focal pneumonia. This is consistent with an upper respiratory tract infection. Viral testing positive for coronavirus. There is no signs at this point of serious bacterial infection such as OM, RPA, epiglottitis, TRUCK [employer] FLATBED, strep pharyngitis, pneumonia, sinusitis, meningitis, bacteremia, serious bacterial infection. She did have 1 episode of diarrhea this morning was and 1 episode of vomiting with nausea. Nausea is improved after Zofran given here in the ER and she is tolerating p.o. fluids. She is not significantly dehydrated at this point. She feels like she will be able to manage hydration and p.o. intake at home. Discussed treatment of coronavirus. She is agreeable to start him Paxlovid per the liver pull medication interaction database we do need to have her decrease her dose of apixaban from 5 mg b.i.d. down to 2.5 mg b.i.d. while Paxlovid. Other meds can remain at their typical doses. Will also had a prescription for Zofran for to help treat gastrointestinal symptoms . Precautions for return to the ER reviewed. Patient's has a pulse oximeter at home. Close followup with primary care physician is indicated. Return to ED for fever > 103, protracted vomiting, confusion, or other worsening. Lab Data Labs: Lab Results 02/14/24 02/14/24 Range/Units 10:31 11:30 WBC 4.06 L (4.50-11.00) K/uL RBC 5.36 H (4.00-5.20) m/uL Hgb 14.3 (12.0-16.0) gm/dL Hct 44.9 (33.0-51.0) % MCV 84 (80-100) fL MCH 27 (26-34) pg MCHC 32 (32-36) gm/dL RDW Coeff of Burke 14.4 (11.5-15.5) % Plt Count 119 L (140-440) K/uL Neut % (Auto) 62.1 (42.0-72.0) % Lymph % (Auto) 19.0 L (20-44) % Sequoyah % (Auto) 17.5 H (0.0-11.0) % Eos % (Auto) 0.7 (0.0-7.0) % Baso % (Auto) 0.5 (0.0-3.0) % Neut # (Auto) 2.50 (1.7-7.0) K/uL Lymph # (Auto) 0.80 L (0.90-2.90) K/uL Sequoyah # (Auto) 0.70 (0.00-0.90) K/UL Eos # (Auto) 0.00 (0.00-0.50) K/uL Baso # (Auto) 0.00 (0.00-0.30) K/uL Abs Immat Gran (auto) 0.00 (0.00-0.30) K/uL Imm/Tot Granulo (auto) 0.2 % Sodium 138 (135-149) mmol/L Potassium 4.0 (3.6-5.1) mmol/L Chloride 104 (96-114) mmol/L Carbon Dioxide 28 (20-32) mmol/L Anion Gap 6 L (7-15) mEq/L BUN 16 (7-30) mg/dL Creatinine 0.8 (0.5-1.5) mg/dL Estimated Creat Clear 50.47 Estimated GFR 82 ml/min Glucose 98 (60-115) mg/dL Lactate 1.2 (0.5-1.9) mmol/L Calcium 9.0 (8.4-10.6) mg/dL SARS-CoV-2 (PCR) POSITIVE SARS-CoV-2 A (Negative) Influenza Type A (PCR) Negative PCR FLU A (Negative) Influenza Type B (PCR) Negative PCR FLU B (Negative) RSV (PCR) Negative PCR RSV (Negative) Imaging Data Chest x-ray: Attestation: I have reviewed the pertinent imaging results. My impression: Normal cardiac silhouette. Normal mediastinum. Close lung helm. No infiltrates. No pneumonia. No pulmonary edema. Radiologist's impression: IMPRESSION: No acute cardiopulmonary process. Discharge Plan Discharge Clinical Impression: COVID-19, Hemoptysis, Vomiting and diarrhea Patient Disposition: Home, Self-Care Additional Instructions: As we discussed, please return to the ER right away if you have worsening symptoms especially oxygen levels below 90%, worsening cough, chest pain, more bloody sputum, uncontrolled nausea or vomiting or diarrhea, dehydration, weakness, or if you have any problems. Please start on Paxlovid today. This is an antiviral to treat coronavirus. While you are on Paxil that you should decrease her dose of Eliquis (apixaban) from your normal dose of 5 mg twice daily down to 2.5 mg per dose twice daily. Use Zofran to help treat nausea. Drink plenty of fluids and stay hydrated. At solid foods as you feel better. Prescriptions: New Paxlovid 300 mg (150 mg x 2)-100 mg tablets,dose pack See Rx Instructions .ROUTE .COMPLEX Qty: 30 0RF Rx Instructions: take TWO 150 mg tablets of nirmatrelvir with ONE 100 mg tablet of ritonavir twice daily for 5 days ondansetron 4 mg tablet,disintegrating 4 mg PO Q8H PRN (Reason: nausea and vomiting) Qty: 10 0RF No Action omeprazole 40 mg capsule,delayed release(DR/EC) 40 mg PO DAILY levothyroxine 88 mcg tablet 88 mcg PO DAILY metoprolol tartrate 25 mg Tablet 25 mg PO BID Qty: 60 0RF Eliquis 5 mg Tablet 5 mg PO BID Qty: 60 0RF Follow Up/Referrals: Delores Goncalves DO [Primary Care Provider] - Stand Alone Forms: [facility] Info Instructions
--- NOTE | 2024-02-14 11:02 | CRLHL7_ITS ---
For Patients: As a result of the Cures Act, medical imaging exams and procedure reports are released immediately into your electronic medical record. You may view this report before your referring provider. If you have questions, please contact your health care provider. INDICATION: Fever. Cough. TECHNIQUE: Chest radiographs, 2 views. COMPARISON: None. FINDINGS: Cardiovascular/Mediastinum: Normal heart size. Unremarkable. Lungs: No focal consolidation. Airways: Trachea remains midline. Pleura: No pleural effusions or pneumothorax. Bones: No acute osseous abnormalities. Upper abdomen: Unremarkable. IMPRESSION: No acute cardiopulmonary process. Dictated by Nakul Ryan MD @ 02/14/2024 12:08:36 PM (Electronically Signed)
[2024-02-14 11:22] LABS: PCR FLU A Negative PCR FLU A (Negative); PCR FLU B Negative PCR FLU B (Negative); PCR RSV Negative PCR RSV (Negative); SARS PCR* POSITIVE SARS-CoV-2 (Negative)
[2024-02-14 11:37] LABS: Lactate* 1.2 mmol/L (0.5-1.9)
[2024-02-14 11:40] LABS: Basophils Percent Auto 0.5 % (0.0-3.0); Eosinophils Percent Auto 0.7 % (0.0-7.0); Hematocrit 44.9 % (33.0-51.0); Hemoglobin* 14.3 gm/dL (12.0-16.0); Immature Granulocytes Pct Auto 0.2 %; Mean Corpuscular HGB Conc 32 gm/dL (32-36); Mean Corpuscular Hemoglobin 27 pg (26-34); Mean Corpuscular Volume 84 fL (80-100); Monocytes Percent Auto 17.5 % (0.0-11.0); Neutrophils Percent Auto 62.1 % (42.0-72.0); Platelet Count* 119 K/uL (140-440); RDW Coefficient of Variation % 14.4 % (11.5-15.5); Red Blood Count 5.36 m/uL (4.00-5.20); White Blood Count* 4.06 K/uL (4.50-11.00)
[2024-02-14 11:48] LABS: Slide Review Reflex No
[2024-02-14 11:55] LABS: Chloride* 104 mmol/L (96-114); Sodium* 138 mmol/L (135-149)
[2024-02-14 11:57] LABS: Creatinine* 0.8 mg/dL (0.5-1.5); Est. Creatinine Clearance* 50.47; Estimated Glomerular Filt Rate 82 ml/min
[2024-02-14 11:58] LABS: Anion Gap 6 mEq/L (7-15); Blood Urea Nitrogen* 16 mg/dL (7-30); Carbon Dioxide* 28 mmol/L (20-32); Glucose* 98 mg/dL (60-115)
== END 2024-02-14 12:48 | disposition home or self-care (01) ==
PROVIDERS: Emergency Provider Emergency Medicine; PCP Family Medicine
DX: U07.1 COVID-19 (principal); R04.2 Hemoptysis
CPT/HCPCS: 36415; 71046; 80048; 83605; 85025; 87631; 93005; 99283; 99284

== ENCOUNTER 2024-06-24 15:53 | Emergency (ER) | payer MEDICAID, SELFPAY ==
[2024-06-24] VITALS (16 sets, daily range): BP systolic 109–141; BP diastolic 57–95; PULSE 61–146; RESP 10–21; TEMP 36.1; O2SAT 98–100; BMI 26.5
--- OUTSIDE RECORDS SUMMARY | 2024-06-24 15:56 | XMS_ITS | Clinical Summary ---
Author Organization [facility] Address [address] [place] [id number] Care Team Providers Care Mold Design Engineer Name Role Phone Delores Goncalves DO Primary Care Provider [phone] Allergies Active Allergy Reactions Criticality Noted Date Comments Adhesive Tape Rash 05/20/2008 Certain adhesives cause rash Blanchard GI Upset Low 08/25/2023 Lettuce GI Upset Low 08/25/2023 Penicillins Other - Describe In Comment Field 08/28/2006 Patient becomes weak. Tizanidine Hallucinations 06/09/2018 Sees spiders Medications omeprazole (PRILOSEC) 40 mg Delayed-Release capsuleIndications:C hronic GERD Take 1 Capsule (40 mg) by mouth once daily before a meal. 90 Capsule 3 024 Active apixaban (Eliquis) 5 mg tabletIndications:Ne w onset atrial fibrillation (HC) TAKE ONE TABLET BY MOUTH TWICE DAILY 180 Tablet 3 024 Active levothyroxine (SYNTHROID) 88 mcg tabletIndications:Hy pothyroidism, unspecified type Take 88 mcg once daily for 6 days per week 90 Tablet 3 024 Active tiZANidine (ZANAFLEX) 4 mg tablet TAKE ONE TABLET BY MOUTH EVERY EIGHT HOURS NEEDED FOR MUSCLE SPASM* 024 Active Magnesium 200 mg tab Take 200 mg by mouth once daily if needed. unsure of dosage Active GINKGO BILOBA ORAL Take 2 Capsules by mouth once daily. Active APPLE CIDER VINEGAR ORAL Take 2 Capsules by mouth once daily. Active multivitamins-minera ls-lutein (Multivitamin 50 Plus) tab tablet Take 1 Tablet by mouth once daily. Active hydrocortisone 1 % creamIndications:Atr ial fibrillation, unspecified type (HC) Apply topically to affected area(s) 4 times daily if needed for Itching. Active metoprolol tartrate 25 mg tabletIndications:At rial fibrillation, unspecified type (HC) 12.5- 25 mg as needed for Heart rates > 110 while at rest (can take up to two times daily if needed) Active amiodarone 200 mg tabletIndications:At rial fibrillation, unspecified type (HC),Atrial flutter by electrocardiogram (HC) 06/27/24 start amiodarone 200 mg BID x1 month and then 200 mg DAILY thereafter. 120 Tablet Active propafenone 150 mg tabletIndications:Lo ngstanding persistent atrial fibrillation (HC) Take 1 Tablet (150 mg) by mouth every 12 hours. 60 Tablet 5 05/25/19 25 9:07 AM CDT 025 2024 Discontinued(* IP Discontinued) furosemide 20 mg tabletIndications:Lo ngstanding persistent atrial fibrillation (HC) Take 1 Tablet (20 mg) by mouth once daily if needed (as needed for weight gain post ablation procedure). 3 Tablet 05/25/19 25 9:07 AM CDT 2024 Discontinued(* IP Discontinued) metoprolol tartrate 25 mg tabletIndications:At rial fibrillation, unspecified type (HC) Take 1 Tablet (25 mg) by mouth two times daily. Take 06/01 & 06/02 and then stop 2024 Discontinued(* Medication adjustment) amiodarone 200 mg tabletIndications:At rial fibrillation, unspecified type (HC) Take 1 Tablet (200 mg) by mouth once daily. Take 1 tablet (200 mg) twice daily for one month, THEN decrease to 1 tablet (200 mg) once daily thereafter 90 Tablet 1 025 2024 Discontinued amiodarone 200 mg tabletIndications:At rial fibrillation, unspecified type (HC) Take 1 Tablet (200 mg) by mouth once daily. Starting 06/03- Take 1 tablet (200 mg) twice daily for one month, THEN decrease to 1 tablet (200 mg) once daily thereafter 90 Tablet 1 025 2024 Discontinued(* Med complete/Regim en complete/Level of care change) propafenone 150 mg tabletIndications:Lo ngstanding persistent atrial fibrillation (HC) Take 1 Tablet (150 mg) by mouth every 12 hours. 60 Tablet 3 025 2024 Discontinued(* Med complete/Regim en complete/Level of care change) Active Problems Problem Noted Date Diagnosed Date Acute diastolic CHF (congestive heart failure) 0 09/02/2023 Depression, recurrent 07/21/2023 Transaminitis 06/09/2018 Shortness of breath 06/09/2018 Nausea 06/09/2018 Hyperlipidemia LDL goal < 130 03/28/2014 S/P lumbar fusion L4-Sacrum 01/03/2010 Unspecified hypothyroidism 12/14/2009 Vitamin D deficiency 12/14/2009 Sensorineural hearing loss, bilateral 12/10/2009 Unspecified tinnitus 11/23/2009 Depression with anxiety 10/20/2008 Anemia 05/26/2008 Ileus 05/26/2008 DDD (degenerative disc disease) 05/23/2008 Chronic back pain 05/23/2008 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 pylori infection (12/2018) 12/16/2018 01/23/2020 Encounters Date Type Department Care Team Description 06/24/2024 11:00 AM CDT Nurse/Clinic Staff Only [facility] [address] [place] [address] Cardiovascular Diagnostic Testing (Per [facility]) 06/24/2024 Travel 06/24/2024 Telephone [facility] [address] [facility] [address] [place] [address] Brayden Arce MD Lab (NEED ORDERS) 06/23/2024 Travel 06/23/2024 Telephone [facility] [address] [facility] [[email or web address] [address] [place] [address] Brayden Arce MD Concerns 06/07/2024 Telephone [facility] [address] [place] [phone] Brayden Arce MD Results (EKG/) 06/03/2024 Orders Only [facility] [address] [place] [address] Kwasi Mark <No scans attached> 06/03/2024 Travel 06/01/2024 9:53 AM CDT Anesthesia Event [facility] [address] [place] [address] Johnathan Jones MD [employer], CONTROL PANEL BUILDER 06/01/2024 7:15 AM CDT - 06/01/2024 11:45 AM CDT Hospital Encounter [facility] [address] [place] [address] Brayden Arce MD Atrial fibrillation, unspecified type (HC) (Primary Dx) Discharge Disposition: Home Self Care 06/01/2024 Travel 05/30/2024 2:30 PM CDT Nurse/Clinic Staff Only [facility] [address] [place], [place] [id number] Cardiovascular Diagnostic Testing (Ordered by Dr. Arce ) 05/30/2024 Orders Only [facility] [address] [facility] [[email or web address]] [address] [place] [phone] Brayden Arce MD 1 scan: (1-Ord) NFLD-EKG-05/30/24 05/30/2024 Travel 05/30/2024 Telephone [facility] [address] [facility] [[email or web address] [address] [place] [phone] Brayden Arce MD Results 05/27/2024 Travel 05/26/2024 Travel 05/23/2024 2:29 PM CDT Anesthesia Event [facility] [address] [place] [address] Graham Linn MD Skoog, Dandre Abdul MD 05/23/2024 9:52 AM CDT - 05/24/2024 12:00 PM CDT Hospital Encounter [facility] [address] [place] [address] Brayden Arce MD Kleinschmit, Phil S, CRNA Decresce, David Brendan, MD Longstanding persistent atrial fibrillation (HC) (Primary Dx) Discharge Disposition: Home Self Care 05/23/2024 Travel 05/20/2024 2:00 PM CDT Ancillary Procedure [facility] [address] [place] [address] 05/20/2024 Travel 04/14/2024 2:00 PM INTELLIGENCE RESEARCH SPECIALIST Office Visit [facility] [address] [facility] [[email or web address] [address] [place] [phone] Cezar Espino MD CV Electrophysiology New (REFERRAL: RIMA PEDRO MD /DX: NEW ONSET ATRIAL FIBRILLATION (HC) /COMMENT: DISCUSS ABLATION FOR AFIB //PCP: Delores Goncalves DO ) 04/14/2024 Travel from Last 3 Months Immunizations Immunization Administration Dates Next Due COVID-19 vaccine (Moderna 100mcg/0.5mL) PF, MDV 07/06/2020 Influenza, High-dose Quadriv alent Inactivated 02/03/2018,02/08/2013,12/12/2008,2004 Influenza, IIV3 (Age 6-35 mos) 12/05/2009 Influenza, IIV3 (Age >=3 years) 02/09/20 13,12/05/2009,12/12/2008,2004 Influenza, IIV4 02/04/2021, 0,12/09/2018,2016,11/19/2015 Influenza, IIV4 (=>6mos) MDV 02/03/2018 Pneumococcal Conj 20-valent (Prevnar 20) 04/28/2023 Td (Age >=7 Years) 03/09/2000 Tdap 02/08/2013 Zoster (Shingrix-RZV, recombinant) 08/24/2023 Family History Medical History Relation Name Comments Heart Disease Father triple bypass Hypertension Father Other Maternal Aunt 1 Crohns Cancer-breast Maternal Aunt 2 also uterin e cancer Diabetes Maternal Grandmother Cancer Mother going through c hemo now/ tumor is not shrinking Diabetes Mother Heart Disease Mother valve leaks, Diabetes Paternal Grandmother Cancer-colon Paternal Uncle survivor Other Son age 30 Crohns Cancer-ovarian No Family History Relation Name Status Comments Father Maternal Aunt 1 Maternal Aunt 2 Maternal Grandmother Mother (Age 69) 08/2011, bi le duct cancer Paternal Grandmother Paternal Uncle Son age 30 Social History Tobacco Use Types Packs/Day Years Used Date Smoking Tobacco: Never Smokeless Tobacco: Never Tobacco Cessation:Counseling Given: Yes Alcohol Use Standard Drinks/Week Comments Yes 1 (1 standard drink = 0.6 oz pur e alcohol) occasional PHQ-2 Answer Date Recorded PHQ-2 TOTAL SCORE 3 07/21/2023 Social Connections Answer Date Recorded Do you often feel lonely or isolated from those around you? 4 08/06/2023 Financial Resource Strain Answer Date R ecorded Difficulty of Paying Living Expenses 3 07/21/2023 Difficulty of Paying Living Expenses Not on file 07/21/2023 Food Insecurity Answer Date Recorded Do you worry your food will run out before you are able to buy more? 2 08/06/2023 Transportation Needs Answer Date Record ed Does lack of transportation keep you from medica l appointments? 1 08/06/2023 Does lack of transportation keep you from work, meetings or getting things that you need? 1 08/06/2023 Housing Stability Answer Date Recorded What is your housing situation today? 1 08/06/2023 Interpersonal Safety Answer Date Record ed Are you being hit, kicked, p ushed or yelled at (see row info)? No 06/01/2024 Interpersonal Safety Abuse 12 - 18 Not on file 06/01/2024 Interpersonal Safety Ambulatory Vulnerability No t on file 06/01/2024 Utilities Answer Date Recorded Do you have trouble paying f or utilities (for example, heat, electricity, water, phone)? 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 on file Not on file Not on file Obstetrics History Para Term AB IAB SAB Ectopic Multiple Livin g Live Births 8 3 3 4 Date Outcome GA Total Labor Labor/2nd/3rd Weight Sex Type Anes PTL Marisol A1 A5 Name Clin SAB SAB SAB Last Filed Vital Signs Vital Sign Reading Time Taken Comments Blood Pressure 108/58 06/24/2024 11:04 AM CDT ma nual Pulse 133 06/24/2024 11:04 AM CDT Temperature 36.7 C (98 F) 06/01/2024 7:51 AM CDT Respiratory Rate 17 06/01/2024 10:15 AM CDT Oxygen Saturation 95% 06/01/2024 10:15 AM CDT Inhaled Oxygen Concentration - - Weight 70.3 kg (155 lb) 06/01/2024 7:51 AM CDT Height 165.1 cm (5' 5) 06/01/2024 7:51 AM CDT Body Mass Index 25.79 06/01/2024 7:51 AM CDT Plan of Treatment Upcoming Encounters Date Type Department Care Team (Late st Contact Info) Description 06/27/2024 1:45 PM CDT Orders Only [facility] [address] [place] [address] Lab, Farm 09/01/2024 3:00 PM CDT Office Visit [facility] [address] [place] [address] Brayden Arce MD [address] [facility] [address] [place], [place] [phone] Health Maintenance Due Date Last Done Comments Tetanus booster 02/08/2023 02/08/2013, 03/09/2000 Zoster (shingles) series for age 50+ (2 of 2) 10/19/2023 08/24/2023 COVID-19 vaccine series ( season) 2023 08/13/2020, 07/06/2020 Depression screening for age 12+ 07/20/2024 07/21/2023, 02/11/2022, 05/04/2020, Additional history exists Medicare Wellness for age 65+ 07/21/2024, 01/23/2020, 11/19/2016, Additional history exists Mammogram for age 45-75 07/26/2024 07/27/19, 11/19/2016, 03/24/2014, Additional history exists Influenza Vaccine (Season Ended) 2024 02/04/2021, 01/23/2020, 12/09/2018, Additional history exists BMI (ht and wt on same day) for age 18+ 04/14/2025 04/14/2024, 01/27/2024, 07/21/2023, Additional history exists Fecal testing sDNA-FIT ([place] guard) for age 45-75 08/04/2026 08/05/2023 Lipids for age 45-75 07/20/2028 07/21/2023, 01/23/2020, 12/09/2018, Additional history exists RSV vaccine for adults or (1 - 1-dose 75+ series) 2033 Tdap Completed 02/08/2013 Hepatitis C screening for ag e 18-79 Completed 02/07/2019, 06/09/2018, 01/14/2016 Pneumococcal series for age 50+ Completed DEXA/DXA scan for age 65+ Completed 07/27/2023, 05/2012 Medical Devices Implanted Type Area Hosiery Knitter Device Identifier Shelf Expiration Date Model / Serial / Lot [id number] francisco javier Flores Crushed 30cc [[id number]] Implanted:Qty: 1 on 05/23/2008 at [facility] Explanted:at [facility] (Quantity not on file) 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 [id number]# / [id number] / Kit Infuse - [id number] Implanted:Qty: 1 on 05/23/2008 at [facility] Spine SOFAMOR DANEK [id number]# / / [id number] Perimeter Lg 14mm 8 Deg Add-On - [id number] Implanted:Qty: 1 on 05/23/2008 at [facility] Spine SO[employer]ANE[employer] [id number]# / / [id number] Perimeter Lg 14mm 8 Deg Add-On - [id number] Implanted:Qty: 1 on 05/23/2008 at [facility] Spine SO[employer]ANEK [id number]# / / [id number] Screw Pa 6.5x35mm Monica 3 - [id number] Implanted:Qty: 1 on 05/23/2008 at [facility] Spine [facility] [id number]# / / Screw Pa 6.5x40mm Monica 3 - [id number] Implanted:Qty: 2 on 05/23/2008 at [facility] Spine HOWMEDICA [id number]# / / Screw Monica 3 Ti Calli - [id number] Implanted:Qty: 3 on 05/23/2008 at [facility] Spine [facility] [id number]# / / Ehsan Monica 3 T1 - [id number] Implanted:Qty: 6 on 05/23/2008 at [facility] Spine [facility] [id number]# / / Mitul Monica Rad 70mm Radius Dbl Bend - [id number] Implanted:Qty: 2 on 05/23/2008 at [facility] [id number]# / / Procedures Procedure Name Priority Date/Time Associated Diagnosis Comments EKG 12 LEAD Routine 06/24/2024 11:30 AM CDT Therapeutic drug monitoring EKG 12 LEAD Routine 06/03/2024 3:13 PM CDT Atrial fibrillation, unspecified type (HC) EKG 12 LEAD Post Op 06/01/2024 10:06 AM CDT ISTAT CHEM 8 Timed 06/01/2024 8:04 AM CDT EKG 12 LEAD Preop 06/01/2024 7:46 AM CDT SCAN-CARDIAC STRIP 06/01/2024 12 :00 AM CDT EKG 12 LEAD Routine 05/30/2024 2:50 PM CDT Atrial fibrillation, unspecified type (HC) EKG 12 LEAD Routine 05/26/2024 3:17 PM CDT Longstanding persistent atrial fibrillation (HC) SCAN-CARDIAC STRIP 05/24/2024 9: 28 AM CDT EKG 12 LEAD Early AM 05/24/2024 6:35 AM CDT SCAN-CARDIAC STRIP 05/23/2024 11 :27 PM CDT HCHG ACTIVATED CLOTTING TM CV Timed 05/23/2024 5:50 PM CDT CV PROCEDURE TO BE PERFORMED Routine 05/23/2024 5:29 PM CDT HCHG ACTIVATED CLOTTING TM CV Timed 05/23/2024 5:07 PM CDT [facility] ACTIVATED CLOTTING TM CV Timed 05/23/2024 4:45 PM CDT [facility] ACTIVATED CLOTTING TM CV Timed 05/23/2024 4:23 PM CDT H[facility] ACTIVATED CLOTTING TM CV Timed 05/23/2024 3:49 PM CDT EP STUDY /ABLATION Routine 05/23/2024 3: 01 PM CDT ENDOTRACHEAL TUBE Routine 05/23/2024 2:4 7 PM CDT ENDOTRACHEAL TUBE Routine 05/23/2024 2:4 7 PM CDT EKG 12 LEAD Preop 05/23/2024 11:07 AM CDT EXTRA TUBE GOLD/SST Today 05/23/2024 1 1:01 AM CDT CBC W PLT NO DIFF Preop 05/23/2024 11: 01 AM CDT BASIC METABOLIC PANEL Preop 05/23/2024 11:[address] CARDIAC MORPHOLOGY W CV DUAL READ Routine 05/20/2024 2:21 PM CDT New onset atrial fibrillation (HC) CT CARDIAC MORPHOLOGY W RAD DUAL READ Routine 05/20/2024 2:21 PM CDT New onset atrial fibrillation (HC) EKG 12 LEAD Routine 04/14/2024 1:58 PM INTELLIGENCE RESEARCH SPECIALIST New onset atrial fibrillation (HC) SDNA-FIT EXTERNAL (COLOGUARD) Routine 08/05/2023 10:30 AM CDT Screening for colon cancer XR DXA BONE DENSITY 2 SITES AXIAL Routine 07/27/2023 3:18 PM CDT Postmenopausal XR MAMMO HAMILTON BILAT SCREEN Routine 07/27/2023 3:05 PM CDT Routine adult health maintenance LIPID PANEL W REFLEX MEASURED LDL Routine 07/21/2023 4:18 PM CDT Hyperlipidemia LDL goal < 130 ANTI HCV Routine 02/07/2019 2:24 PM INTELLIGENCE RESEARCH SPECIALIST Vaginal discharge Screen for STD (sexually transmitted disease) from Last 3 Months or Most Recently Relevant to Health Maintenance Results * EKG 12 LEAD (06/24/2024 11:30 AM CDT) Only the most recent of9 resultswithin the time period is included. us Brayden Arce MD EKG ORD Final Resul t * ISTAT CHEM 8 (06/01/2024 8:04 AM CDT) SODIUM, POCT 06/01/2024 8:10 AM CDT [facility] Comment:Unable to determine. POTASSIUM, POCT 4.1 3.5 - 5.0 mmol/L 06/01/2024 8:10 AM CDT [facility] CHLORIDE, POCT 06/01/2024 8:10 AM CDT [facility] Comment:Unable to determine. CO2,TOTAL, POCT 06/01/2024 8:10 AM CDT [facility] Comment:Unable to determine. ANION GAP, POCT 06/01/2024 8:10 AM CDT [facility] Comment:Unable to calculate. GLUCOSE, POCT 06/01/2024 8:10 AM CDT [facility] Comment:Unable to determine. IONIZED CALCIUM, POCT 06/01/2024 8:10 AM CDT [facility] Comment:Unable to determine. BUN, POCT 06/01/2024 8:10 AM CDT [facility] Comment:Unable to determine. CREATININE, POCT 06/01/2024 8:10 AM CDT [facility] Comment:Unable to determine. BUN/CREAT RATIO, POCT 06/01/2024 8:10 AM CDT [facility] Comment:Unable to calculate. eGFR 06/01/2024 8:10 AM CDT [facility] Comment:Unable to calculate. HEMATOCRIT, POCT 06/01/2024 8:10 AM CDT [facility] Comment:Unable to determine. HEMOGLOBIN, POCT 06/01/2024 8:10 AM CDT [facility] Comment:Unable to determine. Blood BLOOD SPECIMEN / Unknown 06/01/2024 8:04 AM CDT 06/01/2024 8:10 AM CDT us Brayden Arce MD CHEMISTRY Final Resul t [facility] [address] [place] [address], [place] * SCAN-CARDIAC STRIP (06/01/2024 12:00 AM CDT) Narrative 06/01/2024 12:00 AM CDT Ordered by an unspecified provider. us Other Clinical Staff OTHER Final Resul t * SCAN-CARDIAC STRIP (05/24/2024 9:28 AM CDT) us Scanner OTHER Final Result * SCAN-CARDIAC STRIP (05/23/2024 11:27 PM CDT) us Scanner OTHER Final Result * (ABNORMAL) ACTIVATED CLOTTING TIME [id number] ACT (05/23/2024 5:50 PM CDT) Only the most recent of5 resultswithin the time period is included. ACTIVATED CLOTTING TIME, POCT 219(H) 74 - 125 sec 05/23/2024 6:38 PM CDT [facility] Blood BLOOD SPECIMEN / Unknown 05/23/2024 5:50 PM CDT 05/23/2024 6:38 PM CDT us Brayden Arce MD HEMATOLOGY Final Resul t [facility] [address] [place] [address], [place] * EP Procedure to be Performed (05/23/2024 5:29 PM CDT) Narrative Brayden Arce MD - 05/23/2024 5:29 PM CDT Brayden Arce MD 05/23/2024 5:32 PM Cardiac Electrophysiology Immediate Post Procedure Note Preoperative Diagnosis: Atrial fibrillation, persistent (long-standing) Procedure: successful catheter ablation for atrial fibrillation with pulmonary vein antral isolation, roof and posterior wall isolation, and ablation of high frequency activation; ablation of cavo-tricuspid isthmus line Findings/Conclusions: successful ablation for atrial fibrillation and flutter Postoperative Diagnosis: Same as preoperative diagnosis Complications: None Personally monitored patient with conscious sedation during procedure: No Estimated Blood Loss: minimal Specimen: N/A Plan: Bedrest for 3 hours Likely discharge home in am Trial propafenone 150 mg every 12 hours (no significant atherosclerosis noted on CT scan) Surgeon: Brayden Arce MD us Brayden Arce MD INSPECTOR WATCH TRAIN ORD Final Resul t * EP STUDY /ABLATION (05/23/2024 3:01 PM CDT) Anatomical Region Laterality Modality X-Ray Angiograph y, X-Ray Angiography 05/23/2024 3:01 PM CDT Narrative Transcriptions Brayden Arce MD - 05/30/2024 3:16 AM CDT [facility] [place] [facility] Electrophysiology Procedure/Implant Report Name: TIA Osborn BRITTNY Event Date: 05/23/2024 [facility] ID #: [id number] Date: 1960 Gender: Female Age: 64 [facility] #: [id number] Procedure Performed By: BRAYDEN ARCE ReferringPhysician: Summary / Conclusions ARRHYTHMIA * Persistent atrial fibrillation observed, with successful ablation usingAffera PFA including pulmonary vein isolation and roof and posterior wallisolation, ablation of high frequency sites, and incorporation of lowvoltage/fibrotic regions. * Cavotricuspid isthmus line ablation using Affera RFA. CONDUCTION * The AV node conduction is normal. * The His/Purkinje system conduction is normal. POST ABLATION * Patient observed for at least 30 minutes post ablation, prior tocatheter removal. * Post ablation testing with isoproterenol infusion revealed normal basicintervals. PRESSURE LINE * A pressure transducer was used during the procedure to monitor leftatrial pressure. DISCUSSION * ICE Catheter utilized during procedure. VASCULAR ACCESS * Using ultrasound guidance and a percutaneous technique, the rightfemoral vein was accessed. Ultrasound was used to confirm vessel patency,localizing needle into the lumen of the vessel. For safety purposes, apicture was saved for the medical record. * Using ultrasound guidance and a percutaneous technique, the left femoralvein was accessed. Ultrasound was used to confirm vessel patency,localizing needle into the lumen of the vessel. For safety purposes, apicture was saved for the medical record. Pre-Operative Diagnosis ? Atrial Fibrillation, Persistent (long-standing) Post-Operative Diagnosis ? Same as Pre-operative diagnosis Indications ? Same as Pre-operative diagnosis Brief Patient History Tia Portillo is a 64 y.o. female with a PMHx of persistent atrialfibrillation and HFpEF who presents to discuss management options of AF. She has a patch monitor as above with a 100% burden of AF/AFL (strips asabove appear to show both AF and AFL) which is highly symptomatic. Inlight of her symptoms, we discussed rhythm control strategy. We discussedoptions including medical management versus catheter ablation, withcatheter ablation being the preferred option. We specifically discussedthe indications, risks, benefits and alternatives of catheter ablation forAF/AFL. She is agreeable to move forward with the ablation procedure. Consent & [place] Protocol [place] protocol was followed. TIME OUT conducted just prior tostarting procedure confirmed patient identity, site/side, procedure,patient position, and availability of correct equipment and implants (ifapplicable). The risks, benefits, and alternatives of the procedure were discussed withthe patient and written informed consent was obtained. Procedure Description The patient arrived to the EP laboratory in sinus rhythm. Informedconsent was affirmed and a time-out was performed with the necessaryparticipants. The patient was placed under general anesthesia. Thepatient was prepped and draped in the usual fashion and local anestheticwas infiltrated into the groin sites; sheaths were placed in the leftfemoral vein and in the right femoral vein with ultrasound guidance overguidewires. The intracardiac echo (ICE) was placed via the left femoralvein and advanced to the right atrium and a CS catheter was advanced intothe coronary sinus. The ICE demonstrated normal pulmonary vein anatomy.Via the right femoral vein, LA instrumentation was performed with a singletransseptal puncture using a Brk needle, ICE, and fluoroscopy forguidance. Systemic anticoagulation with intravenous heparin was initiatedprior to the transseptal puncture with a target ACT of 400-450 sec. TheBolster electro-anatomical mapping system was used to create geometry andvoltage and activation of the left atrium and the pulmonary veins with theSphere 9 mapping/ablation catheter. We found patchy areas of low voltagethroughout the left atrium and areas of high frequency activation alongthe posterior wall and roof. We ablated with PFA around the pulmonaryveins isolating the left sided and then the right sided pulmonary veinswith overlapping PFA lesions in contiguous fashion using the Afferacatheter. We also ablated across the roof and posterior wall isolatingthese regions and connecting the scar from the left-sided veins to theright-sided veins. We cardioverted to sinus rhythm. We ablated acavo-tricuspid isthmus line using RFA. Antegrade AV conduction and HVintervals were normal. There was no evidence for dual AV stan physiologyand no typical or atypical echos. There were no other inducible atrialarrhythmias and no non-PV triggers. The procedure was terminated. ICEdemonstrated no pericardial effusion. Systemic anticoagulation wasdiscontinued and partially reversed with intravenous Protamine. Sheathswere pulled using manual pressure to achieve hemostasis. The patienttolerated the procedure well and there were no immediate complications. Electrophysiology Study Data Basic Intervals Study State Underlying Rhythm Cycle Length ME PA AH HV QRS [place] QRSMorphology Baseline Atrial Fibrillation [phone] Post Ablation NSR 118 41 Antegrade 1:1 AV Node Function Study State Pacing Site AV Node SCL 1:1 AH HV Dual AVN Physiology? AVNFast 1:1 AVN Slow 1:1 Wenkebach Cycle Length Post Ablation CS 400 380 Post Ablation Isuprel CS Refractory Periods Study State Pacing Site Paced Cycle Length Paced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
--- NOTE | 2024-06-24 16:03 | ED.GENADULT ---
HPI - General Adult General Date Seen: 06/24/24 <José Miguel Garrido MD - Last Filed: 06/24/24 18:35> Chief complaint: Arrhythmia/Palpitations <José Miguel Garrido MD - Last Filed: 06/24/24 18:35> Stated complaint: Cardioversion <José Miguel Garrido MD - Last Filed: 06/24/24 18:35> Time Seen by Provider: 06/24/24 16:00 <José Miguel Garrido MD - Last Filed: 06/24/24 18:35> History of Present Illness HPI narrative: 64 yo F with a history of atrial fibrillation (on diltiazem and metoprolol for rate control, Eliquis for stroke prophylaxis). She has previous ER visits for slow AFib on . She was hospitalized in August 2023 with CHF and AFib with RVR. Apparently was new onset or new diagnosis at that time. Rate controlled with diltiazem and metoprolol. She also received IV Lasix while in the hospital for CHF. Also past medical history includes hypothyroidism, hyperlipidemia, depression/anxiety, back pain, CHF (diastolic). Echo from 08/25/2023 Normal LV size, wall thickness, EF 55-60%. Mildly enlarged left atrium. Sclerotic mitral valve. Mild to moderate mitral regurg No pericardial effusion. She is sent to the ER today from clinic to the ER to get cardioversion. She has a history of AFib and was 1st diagnosed last August. She had been managed over the long-term with rate control and stroke prophylaxis. She has been working with [facility] and had been on propafenone for rhythm control. She underwent ablation in May. About a week after that she had a recurrence of AFib so she had a cardioversion. She has been doing well for the past couple weeks but for the past 2 days she has been back in AFib with RVR. She feels the AFib because she feels just a little bit short of breath and has dizzy spells. When she checks her pulse rate (which is normally in the 50s) it has been up in the 140s for the past couple of days. She is not having any chest pain. No swelling in her legs. No shortness of breath at rest. No orthopnea. No fever. She saw her doctors. They made a couple of changes to her meds. She is post to stop propafenone and start amiodarone a couple of days. She is still on Eliquis and has been taking it as directed without missing any doses over the past few weeks. She still on metoprolol for rate control. She was sent here to the ER by her brush clearing laborer so that we could do a cardioversion because they were not able to get her into the cardiology clinic until next week and they feel that with her symptoms the cardioversion should be done sooner than later. She had no trouble with the sedation from her cardioversion last month. She last ate about noon today, 4-1/2 hours ago. <José Miguel Garrido MD - Last Filed: 06/24/24 18:35> Related Data Home medications: Home Medications ?Medication ?Instructions ?Recorded ?Confirmed levothyroxine 88 mcg tablet 88 mcg PO DAILY 08/25/23 06/24/24 omeprazole 40 mg capsule,delayed 40 mg PO DAILY 08/25/23 02/14/24 release Previous Rx's ?Medication ?Instructions ?Recorded apixaban 5 mg tablet (Eliquis) 5 mg PO BID #60 tabs 08/27/23 metoprolol tartrate 25 mg tablet 25 mg PO BID #60 tabs 08/27/23 dextromethorphan HBr 15 mg/5 mL 15 mg (5 mL) PO Q6-8H PRN cough 02/14/24 oral syrup #118 mL nirmatrelvir 300 mg (150 mg See Rx Instructions PO .COMPLEX 02/14/24 x2)-ritonavir 100 mg tablet,dose #30 ea pack (Paxlovid) ondansetron 4 mg disintegrating 4 mg PO Q8H PRN nausea and 02/14/24 tablet vomiting #10 tabs tizanidine 4 mg tablet 4 mg PO Q8H PRN muscle spasticity 06/13/24 #30 tabs <José Miguel Garrido MD - Last Filed: 06/24/24 18:35> Allergies/adverse reactions: Allergies Allergy/AdvReac Type Severity Reaction Status Date / Time cucumber Allergy Mild Verified 06/24/24 15:59 Penicillins Allergy Verified 06/24/24 15:59 adhesive AdvReac Intermediate Rash Verified 06/24/24 15:59 Lettuce Allergy Mild Uncoded 12/16/23 12:58 Peppers Allergy Mild Uncoded 12/16/23 12:58 <José Miguel Garrido MD - Last Filed: 06/24/24 18:35> [facility] Medical History: Medical History (Updated 06/24/24 @ 17:40 by José Miguel Garrido MD) Acute diastolic heart failure with preserved ejection fraction ?I50.31 - Acute diastolic (congestive) heart failure (ICD-10) Diastolic heart failure, NYHA class 3 ?I50.30 - Unspecified diastolic (congestive) heart failure (ICD-10) Congestive heart failure ?I50.9 - Heart failure, unspecified (ICD-10) Hypothyroidism ?E03.9 - Hypothyroidism, unspecified (ICD-10) Dyspepsia ?R10.13 - Epigastric pain (ICD-10) Hyperlipidemia ?E78.5 - Hyperlipidemia, unspecified (ICD-10) Vitamin D deficiency ?E55.9 - Vitamin D deficiency, unspecified (ICD-10) Primary hypothyroidism ?E03.9 - Hypothyroidism, unspecified (ICD-10) Sensorineural hearing loss (SNHL) of both ears ?H90.3 - Sensorineural hearing loss, bilateral (ICD-10) History of ileus ?Z87.19 - Personal history of other diseases of the digestive system (ICD-10) Depression with anxiety ?F41.8 - Other specified anxiety disorders (ICD-10) Tinnitus of both ears ?H93.13 - Tinnitus, bilateral (ICD-10) Chronic back pain ?M54.9 - Dorsalgia, unspecified (ICD-10) ?G89.29 - Other chronic pain (ICD-10) Degenerative disc disease <José Miguel Garrido MD - Last Filed: 06/24/24 18:35> Surgical History: Surgical History Status post lumbar spinal fusion ?Z98.1 - Arthrodesis status (ICD-10) <José Miguel Garrido MD - Last Filed: 06/24/24 18:35> Family History: Family History Mother Cancer Diabetes Heart disease Aunt Breast cancer Crohn's disease Uncle Colon cancer Maternal Grandmother Diabetes Paternal Grandmother Diabetes Father Heart disease High blood pressure Son Crohn's disease <José Miguel Garrido MD - Last Filed: 06/24/24 18:35> Social History: Social History Narrative: 08/25/2023: Lives in brothers RV with her pet dog. 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 living situation?: I have a place to live at present, but am concerned about future Problems where you live: no known problems Problems where you live details: no running water - RV In the past 12 months, utilities in danger of being shut off: unable to answer In past 12 months, lack of transportation kept you from medical appts, meetings, work, or getting things needed for daily living: yes In the past 12 mos, have been you worried that your food would run out before you had money to buy more?: sometimes true In the past 12 mos, the food you bought just didn't last and you didn't have money to buy more?: sometimes true Highest level of school completed/degree received: some college, no degree Smoking Status: Never smoker Do you use any of these nicotine containing products: None Second hand tobacco smoke exposure: No How often do you have a drink containing alcohol: monthly or less Alcohol type: beer How many standard drinks containing alcohol do you have on a typical day: 3 or 4 How often do you have six or more drinks on one occasion: Less than monthly AUDIT-C Alcohol total score: 3 Non-prescribed substance use: marijuana (any form) Caffeine: Yes (daily tea drinker) How often does anyone, including family, friends and others, physically hurt you: never How often does anyone, including family, friends and others, insult or talk down to you: fairly often How often does anyone, including family, friends and others, threaten you with harm: never How often does anyone, including family, friends and others, scream or curse at you: fairly often service: No Health Related Social Needs: housing instability, housed, with risk of homelessness (Z59.811), food insecurity (Z59.41), transportation insecurity (Z59.82) and Other personal risk factors, not elsewhere classified (Z91.89) <José Miguel Garrido MD - Last Filed: 06/24/24 18:35> Exam Narrative: Exam Narrative: Constitutional: Appears well-developed and well-nourished. Alert. Conversant. Non toxic. HENT: Head: Atraumatic. Nose: Nose normal. Mouth/Throat: Oral mucosa is clear and moist. no trismus. Pharynx normal. Tonsils symmetric. No tonsillar enlargement, erythema, or exudate. Mallampati grade 3 Eyes: Conjunctivae normal. EOM normal. Pupils equal, round, and reactive to light. No scleral icterus. Neck: Normal range of motion. Neck supple. No tracheal deviation present. No JVD Cardiovascular: Tachycardic, 144, regular rhythm. (a flutter with 2:1 conduction on the monitor) No gallop. No friction rub. No murmur heard. Symmetric radial and PT artery pulses Pulmonary/Chest: Effort normal. No stridor. No respiratory distress. No wheezes. No rales. No rhonchi . No tenderness. Abdominal: Soft. No distension. No mass. No tenderness. No rebound. No guarding. Musculoskeletal: RUE: Normal range of motion. No tenderness. No deformity LUE: Normal range of motion. No tenderness. No deformity RLE: Normal range of motion. No edema. No tenderness. No deformity LLE: Normal range of motion. No edema. No tenderness. No deformity Neurological: Alert and oriented to person, place, and time. Normal strength. CN II-VII intact. No sensory deficit. GCS eye subscore is 4. GCS verbal subscore is 5. GCS motor subscore is 6. Normal coordination Skin: Skin is warm and dry. No rash noted. No pallor. Normal capillary refill. Psychiatric: Normal mood. Normal affect. <José Miguel Garrido MD - Last Filed: 06/24/24 18:35> Const: Vital Signs, click to edit/add: Vital Signs - 24 hr 06/24/24 16:02 06/24/24 16:20 06/24/24 16:38 Temperature 96.9 F L Pulse Rate 142 H 142 H Pulse Rate [Pulse Oximeter] 146 H Respiratory Rate 20 13 Blood Pressure 129/82 135/89 Blood Pressure [Ri ght Upper Arm] 135/77 Pulse Oximetry 99 99 99 Oxygen Delivery Me thod Room Air 06/24/24 16:41 06/24/24 16:47 06/24/24 17:01 Temperature Pulse Rate 143 H 143 H 144 H Pulse Rate [Pulse Oximeter] Respiratory Rate 13 10 L 12 Blood Pressure 132/95 H 129/91 H 122/85 Blood Pressure [Ri ght Upper Arm] Pulse Oximetry 98 99 100 Oxygen Delivery Me thod 06/24/24 17:17 06/24/24 17:23 06/24/24 17:27 Temperature Pulse Rate 145 H 144 H 84 Pulse Rate [Pulse Oximeter] Respiratory Rate 12 12 19 Blood Pressure 123/89 141/94 H 128/73 Blood Pressure [Ri ght Upper Arm] Pulse Oximetry 98 100 98 Oxygen Delivery Me thod Room Air Room Air Room Air 06/24/24 17:30 06/24/24 17:32 06/24/24 17:37 Temperature Pulse Rate 72 65 78 Pulse Rate [Pulse Oximeter] Respiratory Rate 18 21 16 Blood Pressure 111/69 109/70 Blood Pressure [Ri ght Upper Arm] Pulse Oximetry 99 98 99 Oxygen Delivery Me thod Room Air Room Air Room Air 06/24/24 17:45 06/24/24 17:50 06/24/24 18:02 Temperature Pulse Rate 61 62 61 Pulse Rate [Pulse Oximeter] Respiratory Rate 11 L 11 L Blood Pressure 127/57 L 136/77 Blood Pressure [Ri ght Upper Arm] Pulse Oximetry 100 98 100 Oxygen Delivery Me thod Room Air 06/24/24 18:03 Temperature Pulse Rate 65 Pulse Rate [Pulse Oximeter] Respiratory Rate 11 L Blood Pressure Blood Pressure [Ri ght Upper Arm] Pulse Oximetry 99 Oxygen Delivery Me thod <José Miguel Garrido MD - Last Filed: 06/24/24 18:35> Vital Signs, click to edit/add: Vital Signs - 24 hr 06/24/24 16:02 06/24/24 16:20 06/24/24 16:38 Temperature 96.9 F L Pulse Rate 142 H 142 H Pulse Rate [Pulse Oximeter] 146 H Respiratory Rate 20 13 Blood Pressure 129/82 135/89 Blood Pressure [Ri ght Upper Arm] 135/77 Pulse Oximetry 99 99 99 Oxygen Delivery Me thod Room Air 06/24/24 16:41 06/24/24 16:47 06/24/24 17:01 Temperature Pulse Rate 143 H 143 H 144 H Pulse Rate [Pulse Oximeter] Respiratory Rate 13 10 L 12 Blood Pressure 132/95 H 129/91 H 122/85 Blood Pressure [Ri ght Upper Arm] Pulse Oximetry 98 99 100 Oxygen Delivery Me thod 06/24/24 17:17 06/24/24 17:23 06/24/24 17:27 Temperature Pulse Rate 145 H 144 H 84 Pulse Rate [Pulse Oximeter] Respiratory Rate 12 12 19 Blood Pressure 123/89 141/94 H 128/73 Blood Pressure [Ri ght Upper Arm] Pulse Oximetry 98 100 98 Oxygen Delivery Me thod Room Air Room Air Room Air 06/24/24 17:30 06/24/24 17:32 06/24/24 17:37 Temperature Pulse Rate 72 65 78 Pulse Rate [Pulse Oximeter] Respiratory Rate 18 21 16 Blood Pressure 111/69 109/70 Blood Pressure [Ri ght Upper Arm] Pulse Oximetry 99 98 99 Oxygen Delivery Me thod Room Air Room Air Room Air 06/24/24 17:45 06/24/24 17:50 06/24/24 18:02 Temperature Pulse Rate 61 62 61 Pulse Rate [Pulse Oximeter] Respiratory Rate 11 L 11 L Blood Pressure 127/57 L 136/77 Blood Pressure [Ri ght Upper Arm] Pulse Oximetry 100 98 100 Oxygen Delivery Me thod Room Air 06/24/24 18:03 Temperature Pulse Rate 65 Pulse Rate [Pulse Oximeter] Respiratory Rate 11 L Blood Pressure Blood Pressure [Ri ght Upper Arm] Pulse Oximetry 99 Oxygen Delivery Me thod <Monique Avila MD - Last Filed: 06/25/24 15:54> Course Course ED Course: I was asked to provide cardioversion for this patient. Risk and benefits were discussed with the patient and consent was signed. Anesthesia provided by Dr. Garrido. Patient was cardioverted after 1 attempt with 150 joules. <Monique Avila MD - Last Filed: 06/25/24 15:54> Reevaluation(s) Reevaluation #1: Recheck-rechecked again at 6:30 a.m.. Patient alert, oriented, conversant, calm. Feels better. Reading her book. Discussed plans for management, follow-up cardiology, and precautions for return. She is comfortable with the plan for discharge. <José Miguel Garrido MD - Last Filed: 06/24/24 18:35> Vital Signs Vital signs: Initial Vital Signs Temperature 96.9 F L 06/24/24 16:02 Temperature Source Temporal Artery Scan 06/24/24 16:02 Pulse Rate 146 H 06/24/24 16:02 Respiratory Rate 20 06/24/24 16:02 Blood Pressure 135/77 06/24/24 16:02 Blood Pressure Mean 96 06/24/24 16:02 Pulse Oximetry 99 06/24/24 16:02 Oxygen Delivery Method Room Air 06/24/24 16:02 Vital Signs Temperature 96.9 F L 06/24/24 16:02 Pulse Rate 146 H 06/24/24 16:02 Respiratory Rate 20 06/24/24 16:02 Blood Pressure 135/77 06/24/24 16:02 Pulse Oximetry 99 06/24/24 16:02 Oxygen Delivery Method Room Air 06/24/24 16:02 Temperature 96.9 F L 06/24/24 16:02 Pulse Rate 65 06/24/24 18:03 Respiratory Rate 11 L 06/24/24 18:03 Blood Pressure 136/77 06/24/24 18:02 Pulse Oximetry 99 06/24/24 18:03 Oxygen Delivery Method Room Air 06/24/24 17:45 <José Miguel Garrido MD - Last Filed: 06/24/24 18:35> Initial Vital Signs Temperature 96.9 F L 06/24/24 16:02 Temperature Source Temporal Artery Scan 06/24/24 16:02 Pulse Rate 146 H 06/24/24 16:02 Respiratory Rate 20 06/24/24 16:02 Blood Pressure 135/77 06/24/24 16:02 Blood Pressure Mean 96 06/24/24 16:02 Pulse Oximetry 99 06/24/24 16:02 Oxygen Delivery Method Room Air 06/24/24 16:02 Vital Signs Temperature 96.9 F L 06/24/24 16:02 Pulse Rate 146 H 06/24/24 16:02 Respiratory Rate 20 06/24/24 16:02 Blood Pressure 135/77 06/24/24 16:02 Pulse Oximetry 99 06/24/24 16:02 Oxygen Delivery Method Room Air 06/24/24 16:02 Temperature 96.9 F L 06/24/24 16:02 Pulse Rate 65 06/24/24 18:03 Respiratory Rate 11 L 06/24/24 18:03 Blood Pressure 136/77 06/24/24 18:02 Pulse Oximetry 99 06/24/24 18:03 Oxygen Delivery Method Room Air 06/24/24 17:45 <Monique Avila MD - Last Filed: 06/25/24 15:54> Medications Administered Medications: Discontinued Medications Generic Name Dose Route Start Last Admin Trade Name Freq PRN Reason Stop Dose Admin Sodium Chloride 1,000 mls @ 1,000 mls/hr 06/24/24 18:00 06/24/24 18:07 0.9 % Sodium Chloride 1000 Ml IV 06/24/24 18:59 Infused .Q1H YEMI Infusion Propofol 200 mg 06/24/24 16:28 06/24/24 17:24 Propofol 10 Mg/Ml Inj IVP 06/24/24 16:29 60 mg ONCE ONE Administration <José Miguel Garrido MD - Last Filed: 06/24/24 18:35> Discontinued Medications Generic Name Dose Route Start Last Admin Trade Name Freq PRN Reason Stop Dose Admin Sodium Chloride 1,000 mls @ 1,000 mls/hr 06/24/24 18:00 06/24/24 18:07 0.9 % Sodium Chloride 1000 Ml IV 06/24/24 18:59 Infused .Q1H YEMI Infusion Propofol 200 mg 06/24/24 16:28 06/24/24 17:24 Propofol 10 Mg/Ml Inj IVP 06/24/24 16:29 60 mg ONCE ONE Administration <Monique Avila MD - Last Filed: 06/25/24 15:54> Medical Decision Making MDM Narrative Medical decision making narrative: This patent presents for evaluation of palpitations, with onset 2 days ago. She does has a history of 8 fib dating back since last year and is currently therapeutic with consistent use of her Eliquis for stroke prophylaxis over the past several weeks. Last month she had an ablation and then subsequently had recurrence of AFib so had a cardioversion. She had been on propafenone for rhythm control, but her brush clearing laborer through [facility] actually had her stop the propafenone yesterday in light of recurrence of a flutter and she is going to be switching to amiodarone for rhythm control (after a 3 day washout. ). Because she is symptomatic further current rhythm (actually atrial flutter with 2:1 conduction) she was sent here to the ER for us to attempt cardioversion. If successful,s he actually has an appointment next week with Cardiology. After obtaining informed consent, electrical cardioversion was successful in converting rhythm back to normal sinus. I doubt acute coronary syndrome, thyroid issues, PE, dissection, drug ingestion, acute electrolyte imbalance, etc. Labs and CXR look ok. Repeat EKG confirms sinus with PACs. Asymptomatic after cardioversion now and would not hospitalize. Discussed with patient and the patient is in agreement. She is already on Eliquis for stroke prophylaxis. She will be transitioned to amiodarone. She is on metoprolol for rate control. No med changes at this time. <José Miguel Garrido MD - Last Filed: 06/24/24 18:35> Lab Data Labs: Lab Results 06/24/24 06/24/24 Range/Units 16:15 16:34 Sodium 138 (135-149) mmol/L Potassium 3.8 (3.6-5.1) mmol/L Chloride 101 (96-114) mmol/L Carbon Dioxide 27 (20-32) mmol/L Anion Gap 10 (7-15) mEq/L BUN 19 (7-30) mg/dL Creatinine 1.0 (0.5-1.5) mg/dL Estimated Creat Clear 49.80 Estimated GFR 62 ml/min Glucose 119 H (60-115) mg/dL Calcium 9.7 (8.4-10.6) mg/dL Magnesium 2.0 (1.5-2.6) mg/dL TSH 2.270 (0.270-4.200) uIU/mL POC Troponin I 0.02 (0.01-0.04) ng/ml <José Miguel Garrido MD - Last Filed: 06/24/24 18:35> Lab Results 06/24/24 06/24/24 Range/Units 16:15 16:34 Sodium 138 (135-149) mmol/L Potassium 3.8 (3.6-5.1) mmol/L Chloride 101 (96-114) mmol/L Carbon Dioxide 27 (20-32) mmol/L Anion Gap 10 (7-15) mEq/L BUN 19 (7-30) mg/dL Creatinine 1.0 (0.5-1.5) mg/dL Estimated Creat Clear 49.80 Estimated GFR 62 ml/min Glucose 119 H (60-115) mg/dL Calcium 9.7 (8.4-10.6) mg/dL Magnesium 2.0 (1.5-2.6) mg/dL TSH 2.270 (0.270-4.200) uIU/mL POC Troponin I 0.02 (0.01-0.04) ng/ml <Monique Avila MD - Last Filed: 06/25/24 15:54> ECG Data Attestation: I personally reviewed and interpreted this ECG as follows: <José Miguel Garrido MD - Last Filed: 06/24/24 18:35> Interpretation: Atrial flutter with 2:1 Rate: 144 VA: na QRS axis: RAD. No Q waves ST segment/T wave: no ST elevation/depression QTc: 414 EKG 2. After cardioversion 1732 Normal sinus rhythm with occasional PACs and PVCs Rate: 87 VA: 166 QRS axis: Rightward axis. ST segment/: No ST segment elevation or depression QTc: 454 <José Miguel Garrido MD - Last Filed: 06/24/24 18:35> Discharge Plan Discharge Clinical Impression: Atrial flutter with rapid ventricular response <José Miguel Garrido MD - Last Filed: 06/24/24 18:35> Patient Disposition: Home w/ Parent or Adult <José Miguel Garrido MD - Last Filed: 06/24/24 18:35> Condition: Stable <José Miguel Garrido MD - Last Filed: 06/24/24 18:35> Instructions: Atrial Flutter (DC), Moderate Sedation (ED) <José Miguel Garrido MD - Last Filed: 06/24/24 18:35> Additional Instructions: As we discussed, if you have more trouble with your heart such as palpitations, dizzy spells, fainting, chest pain, or any concerns, please return to the ER immediately or contact your brush clearing laborer immediately. Continue on her medications as directed by your brush clearing laborer. You should not drive a car or operate machinery for 6 hours after receiving propofol. You can drive tomorrow. <José Miguel Garrido MD - Last Filed: 06/24/24 18:35> Prescriptions: No Action Paxlovid 300 mg (150 mg x 2)-100 mg tablets,dose pack See Rx Instructions .ROUTE .COMPLEX Qty: 30 0RF Rx Instructions: take TWO 150 mg tablets of nirmatrelvir with ONE 100 mg tablet of ritonavir twice daily for 5 days ondansetron 4 mg tablet,disintegrating 4 mg PO Q8H PRN (Reason: nausea and vomiting) Qty: 10 0RF dextromethorphan HBr 15 mg/5 mL syrup 15 mg PO Q6-8H PRN (Reason: cough) Qty: 118 0RF omeprazole 40 mg capsule,delayed release(DR/EC) 40 mg PO DAILY levothyroxine 88 mcg tablet 88 mcg PO DAILY metoprolol tartrate 25 mg Tablet 25 mg PO BID Qty: 60 0RF Eliquis 5 mg Tablet 5 mg PO BID Qty: 60 0RF tizanidine 4 mg tablet 4 mg PO Q8H PRN (Reason: muscle spasticity) Qty: 30 1RF <José Miguel Garrido MD - Last Filed: 06/24/24 18:35> Follow Up/Referrals: Delores Goncalves DO [Primary Care Provider] - <José Miguel Garrido MD - Last Filed: 06/24/24 18:35> Stand Alone Forms: [facility] Info Instructions <José Miguel Garrido MD - Last Filed: 06/24/24 18:35> Procedures Procedural Sedation Pre procedure diagnosis: Atrial flutter with RVR <José Miguel Garrido MD - Last Filed: 06/24/24 18:35> Post procedure diagnosis: Sinus rhythm <José Miguel Garrido MD - Last Filed: 06/24/24 18:35> Written consent by: patient <José Miguel Garrido MD - Last Filed: 06/24/24 18:35> Verification/time out: correct patient, correct site, correct procedure and time out performed <José Miguel Garrido MD - Last Filed: 06/24/24 18:35> Sedation provider same as procedural provider: No <José Miguel Garrido MD - Last Filed: 06/24/24 18:35> Assistants, if any: Dr. Avila, performed cardioversion <José Miguel Garrido MD - Last Filed: 06/24/24 18:35> Indication: other <José Miguel Garrido MD - Last Filed: 06/24/24 18:35> ASA Class: II <José Miguel Garrido MD - Last Filed: 06/24/24 18:35> Time of Last PO Intake: 12:00 <José Miguel Garrido MD - Last Filed: 06/24/24 18:35> Mallampati classification: III. soft palate and base of uvula visible <José Miguel Garrido MD - Last Filed: 06/24/24 18:35> Preparation: cardiac rehabilitation specialist applied, pulse oximeter, capnometry used, supplemental O2 applied, reversal agents at bedside, suction/airway equipment at bedside and IV secured <José Miguel Garrido MD - Last Filed: 06/24/24 18:35> IV Propofol dose (mg): 60 <José Miguel Garrido MD - Last Filed: 06/24/24 18:35> Patient Tolerated Procedure: well and no complications <José Miguel Garrido MD - Last Filed: 06/24/24 18:35> Complications: none <José Miguel Garrido MD - Last Filed: 06/24/24 18:35>
[2024-06-24 16:36] LABS: Troponin, Point-of-Care* 0.02 ng/ml (0.01-0.04)
--- OUTSIDE RECORDS SUMMARY | 2024-06-24 16:51 | XMS_ITS | Clinical Summary ---
Author Organization [facility] Address [address] [place] [address] Care Team Providers Care Offset Press Operator Helper Name Role Phone Delores Goncalves DO Primary Care Provider [phone] Allergies Active Allergy Reactions Criticality Noted Date Comments Adhesive Tape Rash 05/20/2008 Certain adhesives cause rash Perry GI Upset Low 08/25/2023 Lettuce GI Upset [...] 06/24/2024 11:00 AM CDT Nurse/Clinic Staff Only [facility] [address] [place] [address] Cardiovascular Diagnostic Testing (Per [facility]) 06/24/2024 Travel 06/24/2024 Telephone [facility] [address] [facility] [address] [place] [address] Brayden Arce MD Lab (NEED ORDERS) 06/23/2024 Travel 06/23/2024 Telephone [facility] [address] [facility] [address] [place] [address] Brayden Arce MD Concerns 06/07/2024 Telephone [facility] [address] [facility] [address] [place] [phone] Brayden Arce MD Results (EKG/) 06/03/2024 Orders Only [facility] [address] [place] [address] Kwasi Mark <No scans attached> 06/03/2024 Travel 06/01/2024 9:53 AM CDT Anesthesia Event [facility] [address] [place] [address] Johnathan Jones MD [employer], MANAGER RECRUITMENT 06/01/2024 7:15 AM CDT - 06/01/2024 11:45 AM CDT Hospital Encounter [facility] [address] [place] [address] Brayden Arce MD Atrial fibrillation, unspecified type (HC) (Primary Dx) Discharge Disposition: Home Self Care 06/01/2024 Travel 05/30/2024 2:30 PM CDT Nurse/Clinic Staff Only [facility] [address] [place], [place] [phone] Cardiovascular Diagnostic Testing (Ordered by Dr. Arce ) 05/30/2024 Orders Only [facility] [address] [facility] [address] [place] [phone] Brayden Arce MD 1 scan: (1-Ord) NFLD-EKG-05/30/24 05/30/2024 Travel 05/30/2024 Telephone [facility] [address] [facility] [address] [place] [phone] Brayden Arce MD Results 05/27/2024 Travel 05/26/2024 Travel 05/23/2024 2:29 PM CDT Anesthesia Event [facility] [address] [place] [address] Graham Linn MD Skoog, Dandre Abdul MD 05/23/2024 9:52 AM CDT - 05/24/2024 12:00 PM CDT Hospital Encounter [facility] [address] [place] [address] Brayden Arce MD Kleinschmit, Phil S, CRNA Decresce, David Brendan, MD Longstanding persistent atrial fibrillation (HC) (Primary Dx) Discharge Disposition: Home Self Care 05/23/2024 Travel 05/20/2024 2:00 PM CDT Ancillary Procedure [facility] [address] [place] [address] 05/20/2024 Travel 04/14/2024 2:00 PM AMBULATORY CARE COORDINATOR Office Visit [facility] [address] [facility] [address] [place] [phone] Cezar Espino MD CV Electrophysiology New (REFERRAL: [...] on file Legal Sex Female 7:13 AM AMBULATORY CARE COORDINATOR Gender Identity Not on file Sexual Orientation [...] Description 06/27/2024 1:45 PM CDT Orders Only [facility] [address] [place] [address] Lab, Farm 09/01/2024 3:00 PM CDT Office Visit [facility] [address] [place] [address] Brayden Arce MD [address] [facility] [address] [place], [place] [phone] Health Maintenance Due Date Last Done Comments [...] 07/21/2023, Additional history exists Fecal testing sDNA-FIT ([place] guard) for age 45-75 08/04/2026 08/05/2023 Lipids for age 45-75 07/20/2028 07/21/2023, 01/23/2020, 12/09/2018, Additional history exists RSV vaccine for adults or (1 - 1-dose 75+ series) 2033 Tdap Completed 02/08/2013 Hepatitis C screening for ag e 18-79 Completed 02/07/2019, 06/09/2018, 01/14/2016 Pneumococcal series for age 50+ Completed DEXA/DXA scan for age 65+ Completed 07/27/2023, 05/2012 Medical Devices Implanted Type Area Electrostatic Paint Operator Device Identifier Shelf Expiration Date Model / Serial / Lot [id number] francisco javier Flores Crushed 30cc [[id number]] Implanted:Qty: 1 on 05/23/2008 at [facility] Explanted:at [facility] (Quantity not on file) 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 [id number]# / [id number] / Kit Infuse - [id number] Implanted:Qty: 1 on 05/23/2008 at [facility] Spine [employer] [id number]# / / [id number] Perimeter Lg 14mm 8 Deg Add-On - [id number] Implanted:Qty: 1 on 05/23/2008 at [facility] Spine [employer] [id number]# / / [id number] Perimeter Lg 14mm 8 Deg Add-On - [id number] Implanted:Qty: 1 on 05/23/2008 at [facility] Spine [employer] [id number]# / / [id number] Screw Pa 6.5x35mm Monica 3 - [id number] Implanted:Qty: 1 on 05/23/2008 at [facility] [id number]# / / Screw Pa 6.5x40mm Monica 3 - [id number] Implanted:Qty: 2 on 05/23/2008 at [facility] Spine [employer] [id number]# / / Screw Monica 3 Ti Calli - [id number] Implanted:Qty: 3 on 05/23/2008 at [facility] [id number]# / / Ehsan Monica 3 T1 - [id number] Implanted:Qty: 6 on 05/23/2008 at [facility] [id number]# / / Mitul Monica Rad 70mm Radius Dbl Bend - [id number] Implanted:Qty: 2 on 05/23/2008 at [facility] [id number]# / / Procedures Procedure Name Priority Date/Time [...] EKG 12 LEAD Routine 04/14/2024 1:58 PM AMBULATORY CARE COORDINATOR New onset atrial fibrillation (HC) SDNA-FIT EXTERNAL [...] 130 ANTI HCV Routine 02/07/2019 2:24 PM AMBULATORY CARE COORDINATOR Vaginal discharge Screen for STD (sexually transmitted disease) from Last 3 Months or Most Recently Relevant to Health Maintenance Results * EKG 12 LEAD (06/24/2024 11:30 AM CDT) Only the most recent of9 resultswithin the time period is included. us Brayden Arce MD EKG ORD Final Resul t * ISTAT CHEM 8 (06/01/2024 8:04 AM CDT) SODIUM, POCT 06/01/2024 8:10 AM CDT [facility] Comment:Unable to determine. POTASSIUM, POCT 4.1 3.5 - 5.0 mmol/L 06/01/2024 8:10 AM CDT [facility] CHLORIDE, POCT 06/01/2024 8:10 AM CDT [facility] Comment:Unable to determine. CO2,TOTAL, POCT 06/01/2024 8:10 AM CDT [facility] Comment:Unable to determine. ANION GAP, POCT 06/01/2024 8:10 AM CDT [facility] Comment:Unable to calculate. GLUCOSE, POCT 06/01/2024 8:10 AM CDT [facility] Comment:Unable to determine. IONIZED CALCIUM, POCT 06/01/2024 8:10 AM CDT [facility] Comment:Unable to determine. BUN, POCT 06/01/2024 8:10 AM CDT [facility] Comment:Unable to determine. CREATININE, POCT 06/01/2024 8:10 AM CDT [facility] Comment:Unable to determine. BUN/CREAT RATIO, POCT 06/01/2024 8:10 AM CDT [facility] Comment:Unable to calculate. eGFR 06/01/2024 8:10 AM CDT [facility] Comment:Unable to calculate. HEMATOCRIT, POCT 06/01/2024 8:10 AM CDT [facility] Comment:Unable to determine. HEMOGLOBIN, POCT 06/01/2024 8:10 AM CDT [facility] Comment:Unable to determine. Blood BLOOD SPECIMEN / Unknown 06/01/2024 8:04 AM CDT 06/01/2024 8:10 AM CDT us Brayden Arce MD CHEMISTRY Final Resul t [facility] [address] [place] [address], [place] * SCAN-CARDIAC STRIP (06/01/2024 12:00 AM CDT) Narrative 06/01/2024 12:00 AM CDT Ordered by an unspecified provider. us Other Clinical Staff OTHER Final Resul t * SCAN-CARDIAC STRIP (05/24/2024 9:28 AM CDT) us Scanner OTHER Final Result * SCAN-CARDIAC STRIP (05/23/2024 11:27 PM CDT) us Scanner OTHER Final Result * (ABNORMAL) ACTIVATED CLOTTING TIME [id number] ACT (05/23/2024 5:50 PM CDT) Only the most recent of5 resultswithin the time period is included. ACTIVATED CLOTTING TIME, POCT 219(H) 74 - 125 sec 05/23/2024 6:38 PM CDT [facility] Blood BLOOD SPECIMEN / Unknown 05/23/2024 5:50 PM CDT 05/23/2024 6:38 PM CDT us Brayden Arce MD HEMATOLOGY Final Resul t [facility] [address] [place] [address], [place] * EP Procedure to be Performed [...] Brayden Arce MD us Brayden Arce MD KETTLE OPERATOR HEAD ORD Final Resul t * EP STUDY /ABLATION (05/23/2024 3:01 PM CDT) Anatomical Region Laterality Modality X-Ray Angiograph y, X-Ray Angiography 05/23/2024 3:01 PM CDT Narrative Transcriptions Brayden Arce MD - 05/30/2024 3:16 AM CDT [facility] Electrophysiology Procedure/Implant Report Name: TIA Osborn BRITTNY Event Date: 05/23/2024 [facility] ID #: [id number] Date: 1960 Gender: Female Age: 64 [facility] #: [id number] Procedure Performed By: BRAYDEN ARCE ReferringPhysician: Summary [...] forward with the ablation procedure. Consent & Gaston Protocol Gaston protocol was followed. TIME OUT conducted just [...] with a target ACT of 400-450 sec. TheOTOY electro-anatomical mapping system was used to create [...] Intervals Study State Underlying Rhythm Cycle Length MO PA AH HV QRS [place] QRSMorphology Baseline Atrial Fibrillation [phone] Post Ablation [...] See Anesthesia Note Total Flouro Time: 4.2 SHAREPOINT APPLICATION ARCHITECT Total Flouro Dose: 10 mGy Transseptal Mean LA Pressure: 15 mmHg Staff Name Role Brayden Arce [employer] Janelle Pillai RN Nurse Chico Mohan EPT Monitor Nahomi Abraham STEWARD/STEWARDESS NIGHT Scrub Clarke Kendall CVT Toucher Up Medications Ordered and Administered Start Time Stop Time Medication Dose Units Route Ordered By Given By 15:03 0.25% Bupivicaine 5 mL Subcut MD Nahomi Giraldo, STEWARD/STEWARDESS NIGHT 15:03 0.5% Bupivicaine 5 mL Subcut MD Nahomi Giraldo, KARI 15:05 0.5% Bupivicaine 3 mL Subcut MD Nahomi Giraldo, STEWARD/STEWARDESS NIGHT 15:05 1% Lidocaine Hydrochloride 3 mL Subcut MD Julita Giraldo, STEWARD/STEWARDESS NIGHT 15:31 Heparin 71029 Units IV MD Janelle Giraldo RN 15:51 [...] with status of Final Brayden Arce MD [employer] [address] [place] [address] (p) [phone](f) Brayden Arce MD CV IMAGING Edited Resu lt - Final * HCHG TUBE PR1, HCHG STYLET PR1 (05/23/2024 2:47 PM CDT) Narrative Malik Staples MANAGER RECRUITMENT - 05/23/2024 2:47 PM CDT Malik Staples [...] Brayden Arce MD LABORATORY Final Resul t [facility] [address] [place] [address], * CBC with Platelet no Diff (05/23/2024 11:01 AM CDT) WHITE BLOOD COUNT 6.6 4.5 - 11.0 thou/cu mm 05/23/2024 11:18 AM CDT [facility] RED BLOOD COUNT 5.09 4.00 - 5.20 mil/cu mm 05/23/2024 11:18 AM CDT [facility] HEMOGLOBIN 13.8 12.0 - 16.0 g/dL 05/23/2024 11:18 AM CDT [facility] HEMATOCRIT 42.8 33.0 - 51.0 % 05/23/2024 11:18 AM CDT [facility] MCV 84 80 - 100 fL 05/23/2024 11:18 AM CDT [facility] MCH 27.1 26.0 - 34.0 pg 05/23/2024 11:18 AM CDT [facility] MCHC 32.2 32.0 - 36.0 g/dL 05/23/2024 11:18 AM CDT [facility] RDW 13.5 11.5 - 15.5 % 05/23/2024 11:18 AM CDT [facility] PLATELET COUNT 163 140 - 440 thou/cu mm 05/23/2024 11:18 AM CDT [facility] MPV 10.6 6.5 - 11.0 fL 05/23/2024 11:18 AM CDT [facility] NRBC 0.0 % 05/23/2024 11:18 AM CDT [facility] ABS NRBC 0.0 thou /cu mm 05/23/2024 11:18 AM CDT [facility] Blood BLOOD SPECIMEN / Unknown Venipuncture / Unknown 05/23/2024 11:01 AM CDT 05/23/2024 11:13 AM CDT us Brayden Arce MD HEMATOLOGY Final Resul t [facility] [address] [place] [address], * (ABNORMAL) Basic Metabolic Panel (05/23/2024 11:01 AM CDT) SODIUM 140 136 - 145 mmol/L 05/23/2024 11:49 AM CDT [facility] POTASSIUM 3.8 3.5 - 5.1 mmol/L 05/23/2024 11:49 AM CDT [facility] CHLORIDE 101 98 - 107 mmol/L 05/23/2024 11:49 AM CDT [facility] CO2,TOTAL 26 22 - 29 mmol/L 05/23/2024 11:49 AM CDT [facility] ANION GAP 13 5 - 18 05/23/2024 11:49 AM CDT [facility] GLUCOSE 100(H) 70 - 99 mg/dL 05/23/2024 11:49 AM CDT [facility] CALCIUM 8.9 8.8 - 10.4 mg/dL 05/23/2024 11:49 AM T [facility] Comment: Reference ranges for this test were updated on 01/12/2024 to reflect our healthy population more accurately. Reference range changes are not retroactively applied to results, but previous results using the same methodology can be interpreted in the context of the new reference range. BUN 18 8 - 23 mg/dL 05/23/2024 11:49 AM CDT [facility] CREATININE 0.98(H) 0.50 - 0.90 mg/dL 05/23/2024 11:49 AM T [facility] BUN/CREAT RATIO 18 10 - 20 11:49 AM T [facility] eGFR 64(L) >90 mL/min/1. 73m2 05/23/2024 11:49 AM T [facility] Comment:As of 2021, eG FR [...] CHEMISTRY Final Resul t [facility] [address] [place] [address], * CT CARDIAC MORPHOLOGY W CV DUAL [...] the RLPV. Normal pericardium Robby Mckeon MD [facility] FOR PATIENT: Results are automatically released to your [employer] ([employer]) account once available, in compliance with federal [...] conjunction with the services provided by the [facility] ([facility]). INDICATION: Cardiac over-read. Pulmonary vein mapping. FINDINGS: [...] in conjunction with the services provided bythe [facility] ([facility]). INDICATION: Cardiac over-read. Pulmonary vein mapping. FINDINGS: [...] STL-IMP Negative Negative 08/12/2023 4:40 PM CDT [employer] (CLIA #:[id number]) Comment: NEGATIVE TEST RESULT. A negative Cologuard [...] T. et al, N Engl J Med 2014;370(14):9932-4583) The normal value (reference range) for this assay is negative. COLOGUARD RE-SCREENING RECOMMENDATION: Periodic colorectal cancer screening is an important part of preventive healthcare for asymptomatic individuals at average risk for colorectal cancer. Following a negative Cologuard result, the [place] Cancer Society and U.S. Multi-Society Task Force screening guidelines recommend a Cologuard re-screening interval of 3 years. References: [place] Cancer Society Guideline for Colorectal Cancer Screening: https://www.cancer.org/cancer/pqiir-voqnyn-gyiyor/vzlijstmt-ijmihddlp-zrxyneu/ac s-rec ommendations.html.; Victor Manuel GALLARDO, Nirali VILLA, Jacquie GUTHRIE, Colorectal Cancer Screening: Recommendations for Physicians and Patients from the U.S. Multi-Society Task Force on Colorectal Cancer Screening , Am J Gastroenterology 2017; 112:2434-1402. TEST DESCRIPTION: Composite algorithmic analysis of stool [...] Lewis. et al, N Engl J Med 2014;370(14):7139-2376.) Cologuard may produce a false negative or false positive result (no colorectal cancer or precancerous polyp present at colonoscopy follow up). A negative Cologuard test result does not guarantee the absence of CRC or advanced adenoma (pre-cancer). The current Cologuard screening interval is every 3 years. ([place] Cancer Society and U.S. Multi-Society Task Force). Cologuard performance data in a 10,000 patient pivotal study using colonoscopy as the reference method can be accessed at the following location: www.[employer]/results. Additional description of the Cologuard test process, warnings and precautions can be found at www.[employer].com. Stool specimen (specimen) (Rectum) 08/05/2023 10:30 AM CDT 08/07/2023 12:42 PM CDT us Delores Goncalves DO URINE Final Result [employer] (CLIA #:[id number]) [place] [address], [place] [phone] * (ABNORMAL) XR DXA BONE DENSITY 2 SITES AXIAL [36415.1] (07/27/2023 3:18 PM CDT) Anatomical Region Laterality [...] recommended in 3-5 years. Usha Harmon PA-C [facility] 07/28/2023 Narrative 07/28/2023 2:00 PM CDT For Patients: Results are automatically released to your [facility] ([employer]) account once available, in compliance with federal regulations. This means that you may see your results before your provider has had a chance to review them. Please allow 2-3 business days for your provider to comment on the results. XR DXA Bone Mineral Density (BMD) EXAM LOCATION: [address] [address] PATIENT NAME: Tia Portillo DATE OF : [...] two scanners are made by the same lokie engineer. PROCEDURE: Dual-energy x-ray absorptiometry performed with routine [...] probability of hip fracture: 0.9%. Delores Marisol Goncalves DO DEXA Final Result * XR MAMMO [...] care provider. XR MAMMO HAMILTON BILAT SCREEN [[id number]] CLINICAL HISTORY: This is an asymptomatic 63 y.o. patient. INDICATION FOR EXAM: Mammogram Screening. TECHNIQUE: CC & MLO views were obtained. This study was evaluated with the assistance of Computer-Aided Detection. Breast Tomosynthesis was used in interpretation. COMPARISON FILM: Yes 11/19/16 [employer] FINDINGS: The breasts have scattered areas of fibroglandular density. There are no dominant masses, suspicious micro calcifications or areas of architectural distortion. us Delores Marisol Julioshantara DO MAMMO Final Result * (ABNORMAL) LIPID PANEL W REFLEX MEASURED LDL (07/21/2023 4:18 PM CDT) CHOLESTEROL,TOTAL 260(H) 100 - 199 mg/dL 07/22/2023 2:57 PM CDT [facility] Comment: Cholesterol, Total Reference Ranges Desirable <200 mg/dL Borderline 200-239 mg/dL High >=240 mg/dL TRIGLYCERIDES 118 <150 mg/dL 07/22/2023 2:57 PM CDT [facility] HDL CHOLESTEROL 53 >40 mg/dL 2:57 PM CDT [facility] NON-HDL CHOLESTEROL 207(H) <145 mg/dl 07/22/2023 2:57 PM CDT [facility] CHOL/HDL RATIO 4.91(H) <4.50 07/22/2023 2:57 PM CDT [facility] LDL CHOLESTEROL 183(H) <=130 mg/dL 07/22/2023 2:57 PM CDT [facility] VLDL CHOLESTEROL 24 <=30 mg/dL 07/22/2023 2:57 PM CDT [facility] PROVIDER ORDERED STATUS RANDOM 07/22/2023 2:57 PM CDT [facility] Blood BLOOD SPECIMEN / Unknown Venipuncture / Unknown 07/21/2023 4:18 PM CDT 07/21/2023 4:19 PM CDT us Delores Kimshanta CHEMISTRY Final Result [facility] [address] [place] [address], [place] * ANTI HCV (02/07/2019 2:24 PM AMBULATORY CARE COORDINATOR) HEPATITIS C ANTIBODY Non-React norman Non-React norman 02/07/2019 10:48 PM AMBULATORY CARE COORDINATOR [facility] Comment:Antibodies to HCV no t detected; does not exclude the possibility of exposure to HCV. Blood BLOOD SPECIMEN / Unknown Venipuncture / Unknown 02/07/2019 2:24 PM AMBULATORY CARE COORDINATOR 02/07/2019 2:24 PM AMBULATORY CARE COORDINATOR us Jeanie BHAT SEND OUTS Final Result [facility] [address] [place] [address], from Last 3 Months or Most Recently [...] 7:05 AM 05/23/2008 3:57 PM Care Teams Offset Press Operator Helper Relationship Specialty Start Date End Date Delores Goncalves [place] [address] [place] [address] PCP - General Internal Medicine 01/23/20
[2024-06-24 17:02] LABS: Chloride* 101 mmol/L (96-114)
[2024-06-24 17:03] LABS: Potassium* 3.8 mmol/L (3.6-5.1); Sodium* 138 mmol/L (135-149)
[2024-06-24 17:05] LABS: Blood Urea Nitrogen* 19 mg/dL (7-30); Estimated Glomerular Filt Rate 62 ml/min
[2024-06-24 17:06] LABS: Anion Gap 10 mEq/L (7-15); Calcium* 9.7 mg/dL (8.4-10.6); Carbon Dioxide* 27 mmol/L (20-32); Glucose* 119 mg/dL (60-115)
[2024-06-24] MEDS: 0.9 % SODIUM CHLORIDE 1000 ml 1,000 ML IV (17:20)
[2024-06-24] MEDS: PROPOFOL 10 MG/ML INJ 200 MG IVP (17:24)
== END 2024-06-24 18:49 | disposition home or self-care (01) ==
PROVIDERS: Emergency Provider Emergency Medicine; PCP Family Medicine
DX: I48.92 Unspecified atrial flutter (principal); R00.2 Palpitations; Z79.01 Long term (current) use of anticoagulants
CPT/HCPCS: 92960; 36415; 80048; 83735; 84443; 84484; 93005; 99156; 99284; 99285; J2704; J7030

== ENCOUNTER 2024-12-30 13:37 | Outpatient (CLI) | payer MEDICARE, SELFPAY | END 2024-12-30 13:38 | disposition home or self-care (01) | LOC: INJ CL 13:38 | PROVIDERS: PCP Family Medicine; Visit Provider Family Medicine | DX: M53.3 Sacrococcygeal disorders, not elsewhere classified (principal) | CPT/HCPCS: 27096; J0702; Q9966 ==